=== PATIENT | male | born 1955 | race Caucasian/White ===

== ENCOUNTER 2025-07-09 15:59 | Emergency (ER) | payer MEDICARE, SELFPAY ==
--- OUTSIDE RECORDS SUMMARY | 2025-06-13 14:00 | XMS_ITS | Encounter Summary ---
Author Organization [facility] Address [address] [place] [id number] Care Team Providers Care Telephone Clerk Telegraph Office Name Role Phone Rosales Ulrich MD Primary Care Provider Bryce Todd MD Unavailable Unavailabl e Prabha Solorzano RN Unavailable Logan Johnson MD Unavailable Josee Benitez Unavailable Provider, Generic External Data Unavailable Unavailable Bryce Eduardo MD Unavailable Samantha Martin Unavailable [phone] Yasmine Tatum FLORIST DESIGNER Unavailable Beulah Conner NP Unavailable [phone] Arben Wheeler MD Unavailable [phone] Hue Vuong NP Unavailable [phone] Bernabe Trivedi MD Unavailable Reason for Visit * Reason Comments Geriatric Follow Up Encounter Details Date Type Department Care Team (Late st Contact Info) Description 06/13/2025 3:00 PM EDT Office Visit [facility] & [address] [place] [address] Kirti Guzman NP [address] [place] [address] [place] [address] Obstructive sleep apnea (Primary Dx); Mild cognitive impairment; Hypertension, unspecified type Social History Tobacco Use Types Packs/Day Years Used Date Smoking Tobacco: Never Smokeless Tobacco: Former Snuff Tobacco Cessation:Counseling Given: Not Answered Alcohol Use Standard Drinks/Week Comments No 0 (1 standard drink = 0.6 oz pur e alcohol) PHQ-2 Answer Date Recorded PHQ-9 Auto Total 0 01/19/2025 Sex and Gender Information Value Date Recorded Sex Assigned at Male 05/11/2020 12:58 PM EDT Legal Sex Male 2:43 PM EST Gender Identity Male 05/11/2020 12:58 PM EDT Sexual Orientation Straight 05/11/2020 12 :58 PM EDT documented as of this encounter Last Filed Vital Signs Vital Sign Reading Time Taken Comments Blood Pressure 136/72 06/13/2025 2:54 PM EDT Pulse 73 06/13/2025 2:54 PM EDT Temperature 36.7 C (98 F) 06/13/2025 2:54 PM EDT Respiratory Rate - - Oxygen Saturation 98% 06/13/2025 2:54 PM EDT Inhaled Oxygen Concentration - - Weight 101.2 kg (223 lb) 06/13/2025 2:54 PM EDT Height - - Body Mass Index 31.1 04/20/2025 8:51 AM EDT documented in this encounter Functional Status * Are you blind or do you have difficulty seeing, even when wearing glasses? Answer Date of Assessment Author No 11/07/2015 11:50 PM EDT Brad Atkins RN * Do you have serious difficulty walking or climbing stairs? Answer Date of Assessment Author No 11/07/2015 11:50 PM EDT Brad Atkins RN * Do you have difficulty dressing or bathing? Answer Date of Assessment Author No 11/07/2015 11:50 PM EDT Brad Atkins RN * Because of a physical, mental, or emotional condition, do you have difficulty doing errands alone such as a visiting a doctor's office or shopping? Answer Date of Assessment Author No 11/07/2015 11:50 PM EDT Brad Atkins RN documented as of this encounter Mental Status * Because of a physical, mental, or emotional condition, do you have serious difficulty concentrating, remembering, or making decisions? 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 -social and mental stimulation. Highly recommend reading, hobbies, puzzles, current events, music, financials, sports and socializing with friends and family. -Mediterranean diet Return in a year Kirti Guzman WAREHOUSE EXAMINER documented in this encounter Progress Notes * Kirti Guzman NP - 06/13/2025 3:00 PM EDT Phil Magdaleno is here with his , Natalie for recheck. Pt has MCI and lives with his family in [facility]. 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 Phil has mild word finding difficulties and he has no insight about cognitive decline. Natalie is concerned about declining cognitionwith more dependence on her for making decisions. We reviewed medications. Citalopram has been helpful for mood, with less irritableness. Phil manages his own medication and does not use a pillbox. Counseled about MCI and potential benefits of physical exercise, new learning, and stimulating activities. Phil has sleep apnea and uses CPAP, but it comes off when he goes to the bathroom and he doesn't always put it back on. Phil has hearing loss, but does not like wearing his hearing aids. We discussed potential benefits of using hearing aids and consistent CPAP use for brain health. We discussed importance of Natalie providing oversight with medications and that use of a pillbozx could be helpful to ensure meds a re taken correctly. Phil was seen today for geriatric follow up. Diagnoses and all orders for this visit: Obstructive sleep apnea Mild cognitive impairment - citalopram (CeleXA) 20 mg tablet; Take 1 Tablet (20 mg) by mouth daily. 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 -social and mental stimulation. Highly recommend reading, hobbies, puzzles, current events, music, financials, sports and socializing with friends and family. -Mediterranean diet Return in a year Kirti Guzman WAREHOUSE EXAMINER Time A total of 50 minutes was spent on today's patient encounter. Time spent includes some or all of the following, both ghjp-fd-vthh time and non mvpl-fs-metp time,but is not limited to: [x] Preparing to see the patient and reviewing records [] Discussion or coordination of care with other health personal care assistant [] Reviewing records or discussing history of plan with colleagues [x] Obtaining and/or reviewing the history [] Individual interpretation of results not billed by me [] Performing a medically appropriate examination [x] Counseling patient and/or caregiver [] Ordering of unique Tests, Medications, Referrals, or Procedures [x] Documentation within the EHR Est 40-54 min LOS [id number] documented in this encounter Plan of Treatment Upcoming Encounters Date Type Department Care Team (Late st Contact Info) Description 07/20/2025 1:00 PM EST Appointment [facility] Physicians - Heart & Vascular, [address] [place] [phone] [place] [address] [place] [address] Office [address] [place] [phone] 10/19/2025 9:10 AM EST Appointment [facility] Physicians - Primary Care, [facility] [address] [place] [address] Office [address] [place] [address] Rosales Ulrich MD [address] [place] [address] [address] [place] [address] 11/28/2025 9:20 AM EDT Appointment [facility] Physicians - Sleep Medicine, [address] [place] [phone] Hue Vuong NP [address] [place] [address] [address] [place] [address] 06/14/2026 11:00 AM EDT Appointment [facility] & [address] [place] [phone] Kirti Guzman NP [address] [place], [place] [id number] documented as of this encounter Visit Diagnoses Diagnosis Obstructive sleep apnea- Primary Obstructive sleep apnea (adult) (pediatric) Mild cognitive impairment Mild cognitive impairment, so stated Hypertension, unspecified type documented in this encounter Additional Health Concerns Assessment Noted Time PHQ-9 Depression Total Score: 1 02/05/20 23 4:17 PM EDT documented as of this encounter Care Teams Telephone Clerk Telegraph Office Relationship Specialty Start Date End Date Rosales Ulrich MD PCP - General 04/26/09 Bryce Todd MD Neurosurgery 10/04/20 Prabha Solorzano, RN [address] [place] [address] Registered Nurse 12/03/20 Logan Johnson MD [address] [place] [address] Orthopedic Surgery 01/03/21 Josee Benitez PA [address] [place], [place] [address] Physician Press Tender [employer]endiary Grenade Orthopedic Surgery 01/04/21 Provider, Generic External Data 02/02/21 Bryce Eduardo MD [address] [place] [address] Orthopedics 03/02/21 Samantha Martin PA [address] [place] [address] Physician Press Tender [employer] Orthopedic Surgery 04/02/21 Yasmine Tatum NP [address] [place] [address] Nurse Practitioner Nurse Practitioner 12/17/21 Beulah Conner NP [address] [place] [address] Nurse Practitioner Nurse Practitioner, Family 05/03/22 Arben Wheeler MD [address] [place], [place] [address] Internal Medicine, Sleep Medicine 11/15/22 Hue Vuong NP [address] [place] [address] Nurse Practitioner Nurse Practitioner, Acute Care 12/16/22 Bernabe Trivedi MD [address] [place] [address] Otolaryngology 01/08/23 documented as of this encounter
[2025-07-09 16:08] VITALS: BP 155/80; PULSE 68; RESP 14; TEMP 36.8; O2SAT 100; BMI 30.7
--- NOTE | 2025-07-09 16:11 | XR_ITS ---
PROCEDURE INFORMATION: Exam: XR Left Tibia and Fibula Exam date and time: 07/09/2025 4:18 PM Age: 70 years old Clinical indication: Injury or trauma; Fall; Blunt trauma; Lower leg; Left; Additional info: Fall, leg/knee pain TECHNIQUE: Imaging protocol: Radiologic exam of the left tibia and fibula. Views: 2 views. COMPARISON: CR XR KNEE LT 3V 07/09/2025 4:18 PM FINDINGS: Bones/joints: There is no evidence of acute fracture.There is no evidence of malalignment or dislocation. Soft tissues: Normal. IMPRESSION: There is no evidence of acute fracture.There is no evidence of malalignment or dislocation. .
--- NOTE | 2025-07-09 16:11 | XR_ITS ---
PROCEDURE INFORMATION: Exam: XR Left Femur Exam date and time: 07/09/2025 4:18 PM Age: 70 years old Clinical indication: Pain; Thigh; Left; Additional info: Fall, leg/knee pain TECHNIQUE: Imaging protocol: Radiologic exam of the left femur. Views: 2 views. COMPARISON: CR XR KNEE LT 3V 07/09/2025 4:18 PM FINDINGS: Bones/joints: No femoral shaft fracture.. No definite fracture of the hip. Moderate degenerative changes in the hip Soft tissues: Unremarkable. IMPRESSION: No femoral shaft fracture.. No definite fracture of the hip.
--- NOTE | 2025-07-09 16:11 | XR_ITS ---
PROCEDURE INFORMATION: Exam: XR Left Knee Exam date and time: 07/09/2025 4:18 PM Age: 70 years old Clinical indication: Injury or trauma; Fall; Blunt trauma; Knee; Left; Additional info: Fall, knee pain TECHNIQUE: Imaging protocol: Radiologic exam of the left knee. Views: 3 views. COMPARISON: CR XR FEMUR LT 2V 07/09/2025 4:18 PM FINDINGS: Bones/joints: Lucency in the superior lateral aspect of the patella. Differential includes bipartite patella versus fracture. Moderate Tricompartmental joint space narrowing and osteophyte formation consistent with degenerative changes. Soft tissues: Normal. IMPRESSION: 1. Lucency in the superior lateral aspect of the patella. Differential includes bipartite patella versus fracture. 2. Moderate Tricompartmental joint space narrowing and osteophyte formation consistent with degenerative changes.
--- NOTE | 2025-07-09 16:14 | ED_ITS ---
Discharge Plan Disposition Patient Disposition: Home, Self-Care Condition: Good Referrals Follow up/Referrals: Provider,Referral, MD [Primary Care Provider, Medical] - See instructions Activity Restrictions/Add. Instructions Additional Instructions/Restrictions: Please take tylenol and motrin for pain at home. you may weight bear as tolerated. Please call your bone doctor so that they can follow up with you in clinic and explore options for more advanced imaging such as MRI to ensure you haven't torn ligaments or soft tissue in your knee. You may rotate with ice and heat at home. Clinical Impressions Clinical Impression: Acute pain of left knee Fall Qualifiers: Encounter type: initial encounter Qualified Code(s): W19.XXXA - Unspecified fall, initial encounter Print Language Print Language: Romanian Discharge ED Provider: Alfredo Thornton Adult HPI General Chief complaint: Extremity Injury, Lower Stated complaint: AO 07-09 fell and hurt left knee Time Seen by Provider: 07/09/25 16:02 Mode of Arrival: Wheelchair Source of Information: Patient Description of Symptoms (Recalled from ER Triage Doc. by RN): patient states about 30 mins ago he was trying to go down a hill while deer hunting and he slipped and his left leg went all the way nehomd him, he has left knee pain. 05/27 History of Present Illness HPI narrative: This is a 70-year-old male patient, with past medical history of hypertension and prophylactic aspirin use, who is presenting to the emergency department today for evaluation of left knee pain. Patient states that he was hunting this afternoon and he was walking down a hill when he slipped and his knee hyperflexed underneath him and the entirety of his body weight came down onto the knee. He did not hit his head and did not lose consciousness. He has been unable to walk since that time and had to be full assisted into the car by his family. He also required a wheelchair to get to the emergency department. He has had no pain in the hips, no pain in the back, no numbness and tingling in the extremities, and no weakness distally in the extremity. Related Data Allergies Allergy/AdvReac Type Severity Reaction Status Date / Time No Known Allergies Allergy Verified 07/09/25 16:24 [facility] Disclaimer: The information contained in this section may have been updated after the patient was seen, as this information can be updated by other users. Social History Smoking Status: Never smoker alcohol intake: never current occupational status: previously employed Travel in the last 8 weeks?: None ROS Obtained: Yes Systems reviewed as appropriate & no additional complaints except as documented Physical Exam General General appearance: other (See MDM) Respiratory Respiratory exam: Present other (See MDM) Cardiovascular Cardiovascular exam: Present other (See MDM) Neurological Exam Neurological exam: Present other (See MDM) Medical Decision Making Medical Records Medical records reviewed: Yes I reviewed the patient's medical records. Screening: Per USPSTF and CDC recommendations, given the prevalence of disease in our region, it is our hospital?s policy to screen for HIV and viral Hepatitis for all patients aged 18 and over and those with ongoing risk factors. Antonio Inquiry Pt receiving controlled substance: No Antonio was queried for this patient: No Vital Signs: 07/09/25 16:08 07/09/25 16:26 07/09/25 16:30 Temperature 98.2 F Temperature Source Oral Pulse Rate 76 79 Pulse Rate [Right Radial] 68 Respiratory Rate 14 Blood Pressure 155/80 H Blood Pressure [Right Arm] 155/80 H Blood Pressure Mean [Right Arm] 105 Blood Pressure Source [Right Arm] Automatic Cuff Blood Pressure Position [Right Arm] Supine 02 Sat by Pulse Oximetry 100 94 L 95 Oxygen Delivery Method Room Air Room Air Orders (Tests/Meds): ED MEDICATIONS Discontinued Medications Generic Name Dose Route Start Last Admin Trade Name Anahy PRN Reason Stop Dose Admin Acetaminophen 1,000 mg 07/09/25 16:12 07/09/25 16:24 Acetaminophen 500mg Tab PO 07/09/25 16:13 1,000 mg ONCE ONE Administration Ibuprofen 800 mg 07/09/25 16:12 07/09/25 16:27 Ibuprofen 400 Mg Tablet PO 07/09/25 16:13 Not Given ONCE ONE Ibuprofen 0 mg 07/09/25 16:29 07/09/25 16:31 Ibuprofen 800 Mg Tablet PO 07/09/25 16:30 Not Given ONCE ONE Ibuprofen 800 mg 07/09/25 16:32 07/09/25 16:33 Ibuprofen 800 Mg Tablet PO 07/09/25 16:33 800 mg ONCE ONE Administration Methocarbamol 500 mg 07/09/25 16:12 07/09/25 16:24 Methocarbamol 500mg Tablet PO 07/09/25 16:13 500 mg BID ONE Administration ORDERS Category Date Time Status Femur XR left 2 views [XR femur LT 2V] Stat Exams 07/09/25 16:11 Completed Fibula/tibia XR left 2 views [XR tibia fibula LT 2V] Exams 07/09/25 16:11 Completed Stat Knee XR left 3 views [XR knee LT 3V] Stat Exams 07/09/25 16:11 Completed HIV Combo Stat Lab 07/09/25 16:35 Ordered Hepatitis C Ab Qual. W/ RFX Stat Lab 07/09/25 16:35 Ordered Medical Decision Narrative: In summary, this is a 70-year-old male patient who is presented to the Emergency Department today for evaluation of left knee pain after falling and having his knee hyperflexed underneath his body and having the entirety of his body weight come down onto his left knee. The past medical history and comorbidities include hypertension as well as prophylactic aspirin use On initial evaluation of the patient they were resting comfortably in no acute distress and nontoxic in appearance. They are hemodynamically stable, saturating well room air, and are neurologically intact. Primary survey the patient has an intact airway with bilateral breath sounds plus radial pulse. He has no scalp lacerations, hematomas, or abrasions. No midface instability or trauma occlusion. No intraoral lacerations or lesions. He has no tenderness of the C, T, or L-spine. No deformities of the upper extremities. Chest and abdomen are nontender to palpation. Pelvis is stable. He has no tenderness of the proximal femur, he has significant tenderness of the distal femur at the level of the left knee as well as the proximal tibia at the level of the knee. He has full range of motion and motor strength about the left ankle. Femur fracture, tibial plateau fracture, fibular fracture, soft tissue injury, ligamentous injury, meniscus injury, among others Work was initiated with x-rays of the femur, knee, and tib-fib on the left. We have also administered ibuprofen, Tylenol, and Robaxin to the patient for pain. X-rays were personally turbid by me and demonstrate no evidence of distal femur proximal tibial fracture. Official radiology read notes that there is evidence of a bipartite patella versus potential patellar fracture. I have reexamined the patient's knee and he does not have any tenderness over the patella itself so I do not feel that this patellar fracture I feel that this is more likely a bipartite patella. Patient states that he has established care with an orthopedist through [facility]. I have asked him to obtain follow-up with them as he likely has a soft tissue injury within the knee. While in the emergency department he was able to ambulate without difficulty. His pain has been better controlled with Robaxin, ibuprofen, Tylenol. I am instructed him to continue taking anti-inflammatories at home for this pain. At this time all questions been answered and all parties are agreeable with the decision to discharge Critical Care Critical Care Time Critical Care Time: No
[2025-07-09] MEDS: METHOCARBAMOL 500MG TABLET 500 MG PO (16:24)
[2025-07-09] MEDS: ACETAMINOPHEN 500MG TAB 1000 MG PO (16:24)
[2025-07-09 16:26] VITALS: BP 155/80; PULSE 76; O2SAT 94
[2025-07-09 16:30] VITALS: PULSE 79; O2SAT 95
[2025-07-09] MEDS: IBUPROFEN 800 MG TABLET PO (16:33)
--- OUTSIDE RECORDS SUMMARY | 2025-07-09 16:56 | XMS_ITS | Encounter Summary ---
Author Organization [facility] Address [facility] [place] [address] Care Team Providers Care Driver Lifter Of Sanitation Truck Name Role Phone Rosales Ulrich MD Primary Care Provider [phone] Bryce Todd MD Unavailable Unavailabl e Prabha Solorzano RN Unavailable Logan Johnson MD Unavailable Josee Benitez Unavailable Provider, Generic External Data Unavailable Unavailable Bryce Eduardo MD Unavailable Samantha Martin Unavailable [phone] Yasmine Tatum LOCKSMITH Unavailable Beulah Conner NP Unavailable [phone] Arben Wheeler MD Unavailable [phone] Hue Vuong NP Unavailable [phone] Bernabe Trivedi MD Unavailable Reason for Visit * Reason Comments Medications Refill Encounter Details Date Type Department Care Team (Late st Contact Info) Description 06/14/2025 Refill [facility] Physicians - Heart & Vascular, [address] Medical Office [address] [place] [address] Kate Singh DO [address] [facility] [address] [place] [phone] Medications Refill Social History Tobacco Use Types Packs/Day Years Used Date Smoking Tobacco: Never Smokeless Tobacco: Former Snuff Alcohol Use Standard Drinks/Week Comments No 0 [...] PM EDT documented as of this encounter Functional Status * Are you [...] Brad Atkins RN documented in this encounter Plan of Treatment Upcoming Encounters Date Type Department Care Team (Late st Contact Info) Description 07/20/2025 1:00 PM EST Appointment [facility] Physicians - Heart & Vascular, [place] [address] [place] [address] Building [address] [place] [phone] Kate Singh DO [address] [facility] Building [address] [place] [phone] 10/19/2025 9:10 AM EST Appointment [facility] Physicians - Primary Care, [place] [address] [place] [phone] Rosales Ulrich MD [address] [place] [address] [address] [place] [address] 11/28/2025 9:20 AM EDT Appointment [facility] Physicians - Sleep Medicine, [address] [place] [phone] [place] [address] [place] [address] [address] [place], [place] [address] 06/14/2026 11:00 AM EDT Appointment [facility] & [place] [address] [facility] [address] [place] [address] Kirti Guzman NP [address] [place] [address] [place] [address] documented as of this encounter Visit Diagnoses Diagnosis Gout, unspecified cause, unspecified chronicity, unspecified site documented in this encounter Additional Health Concerns Assessment Noted Time PHQ-9 Depression Total Score: 1 02/05/20 23 4:17 PM EDT documented as of this encounter Care Teams Driver Lifter Of Sanitation Truck Relationship Specialty Start Date End Date Rosales Ulrich MD PCP - General 04/26/09 Bryce Todd MD Neurosurgery 10/04/20 Prabha Solorzano, [address] [place] [address] Registered Nurse 12/03/20 Logan Johnosn MD [address] [place] [address] Orthopedic Surgery 01/03/21 Josee Benitez PA [address] [place] [address] Physician Boiler Shop Mechanic Orthopedic Surgery 01/04/21 Provider, Generic External Data 02/02/21 Bryce Eduardo MD [address] [place], [place] [id number] Orthopedics 03/02/21 Samantha Martin PA [address] [place], [place] [address] Physician Boiler Shop Mechanic Orthopedic Surgery 04/02/21 Yasmine Tatum NP [address] [place] [address] Nurse Practitioner Nurse Practitioner 12/17/21 Beulah Conner NP [address] [place] [address] Nurse Practitioner Nurse Practitioner, Family 05/03/22 Arben Wheeler MD [address] [place] [address] Internal Medicine, Sleep Medicine 11/15/22 Hue Vuong NP [address] [place] [address] Nurse Practitioner Nurse Practitioner, Acute Care 12/16/22 Bernabe Trivedi MD [address] [facility] [place] [address] Otolaryngology 01/08/23 documented as of this encounter
--- OUTSIDE RECORDS SUMMARY | 2025-07-09 16:56 | XMS_ITS | Encounter Summary ---
Author Organization [facility] Address [address], [address] [place] [address] Care Team Providers Care Comber Operator Name Role Phone Rosales Ulrich MD Primary Care Provider + Encounter Details Date Type Department Care Team (Late st Contact Info) Description 09/16/2017 PAT Telephone [facility] PAT [address] [place] [address] Des Trivedi, RN Social History Tobacco Use Types Packs/Day Years Used Date Smoking Tobacco: Never Smokeless Tobacco: Former Comments:years ago-on and of f Alcohol Use Standard Drinks/Week Comments No 0 (1 standard drink = 0.6 oz pur e alcohol) Sex and Gender Information Value Date Recorded Sex Assigned at Not on file Legal Sex Male 11:23 PM EST Gender Identity Not on file Sexual Orientation Not on file documented as of this encounter Last Filed Vital Signs Vital Sign Reading Time Taken Comments Blood Pressure - - Pulse - - Temperature - - Respiratory Rate - - Oxygen Saturation - - Inhaled Oxygen Concentration - - Weight 102.1 kg (225 lb) 09/16/2017 3:36 PM EST Height 182.9 cm (6') 09/16/2017 3:36 PM EST Body Mass Index 30.52 09/16/2017 3:36 PM EST documented in this encounter Progress Notes * Nataly Trivedi - 09/16/2017 3:39 PM EST Obstructive Sleep Apnea (KASSANDRA) Screening Patient: Bryce Magdaleno Date of : 1955 Date: 09/16/2017 1. Are you a loud and/or regular snorer? [] Yes [x] No 2. Have you been observed to gasp or stop breathing during sleep? [] Yes [x] No 3. Do you feel tired or groggy upon awakening or do you awaken with a headache? [] Yes [x] No 4. Are you often tired or fatigued during the wake time hours? [] Yes [x] No 5. Do you fall asleep sitting, reading, watching TV or driving? [] Yes [x] No 6. Do you often have problems with memory or concentration? [] Yes [x] No If patient's score is >=3 they are considered high risk for KASSANDRA. Notify the anesthesiologist of the high risk and document in focus note. Note: If the patient's BMI is more than 35 kg m , has neck circumference > 40 cm, and/or high blood pressure the risk is greater (?? [place] [employer], 2006). documented in this encounter Plan of Treatment Not on file documented as of this encounter Visit Diagnoses Not on filedocumented in this encounter Care Teams Comber Operator Relationship Specialty Start Date End Date Rosales Ulrich MD [address] [facility] [address] [place] [address] PCP - General 08/01/15 documented as of this encounter
--- OUTSIDE RECORDS SUMMARY | 2025-07-09 16:56 | XMS_ITS | Encounter Summary ---
Author Organization [facility] Address [facility] [address] [place] [address] Care Team Providers Care Garment Examiner Name Role Phone Rosales Ulrich MD Primary Care Provider Bryce Todd MD Unavailable Unavailabl e Prabha Solorzano RN Unavailable Logan Johnson MD Unavailable Josee Benitez Unavailable Provider, Generic External Data Unavailable Unavailable Bryce Eduardo MD Unavailable Samantha Martin Unavailable [phone] Yasmine Tatum PLASMA CUTTING MACHINE OPERATOR Unavailable Beulah Conner NP Unavailable [phone] Arben Wheeler MD Unavailable [phone] Hue Vuong NP Unavailable [phone] Bernabe Trivedi MD Unavailable Reason for Visit * Reason Comments Medications Refill Encounter Details Date Type Department Care Team (Late st Contact Info) Description 05/11/2025 Refill [facility] Physicians - Heart & Vascular, [address] Office [address] [place] [address] Darin Dick MD Medications Refill Social History Tobacco Use Types [...] Description 07/20/2025 1:00 PM EST Appointment [facility] Physicians - Heart & Vascular, [place] [address] [place] [address] Medical Office Building [address] [place] [phone] Kate Singh DO [address] [place] [address] Medical Office Building [address] [place] [phone] 10/19/2025 9:10 AM EST Appointment [facility] Physicians - Primary Care, [address] Medical Office Building [address] [place] [phone] Rosales Ulrich MD [address] [facility] [address] [place] [address] 11/28/2025 9:20 AM EDT Appointment [facility] Physicians - Sleep Medicine, [address] Medical Office Building [address] [place] [phone] Hue Vuong NP [address] [facility] [address] [place], [place] [phone] 06/14/2026 11:00 AM EDT Appointment [facility] & [address] [place] [phone] Kirti Guzman NP [address] [place] [address] [place] [address] documented as of this encounter Visit Diagnoses Diagnosis Coronary artery disease, unspecified vessel or lesion type, unspecified whether angina present, unspecified whether kaibab or transplanted heart Abnormal electrocardiogram (ECG) (EKG) Gout, unspecified cause, unspecified chronicity, unspecified site documented in this encounter Additional Health Concerns Assessment Noted Time PHQ-9 Depression Total Score: 1 02/05/20 23 4:17 PM EDT documented as of this encounter Care Teams Garment Examiner Relationship Specialty Start Date End Date Rosales Ulrich MD PCP - General 04/26/09 Bryce Todd MD Neurosurgery 10/04/20 Prabha Solorzano, RN [address] [place], [place] [address] Registered Nurse 12/03/20 Logan Johnson MD [address] [place] [address] Orthopedic Surgery 01/03/21 Josee Benitez PA [address] [place] [address] Physician Fiberglass Finisher Orthopedic Surgery 01/04/21 Provider, Generic External Data 02/02/21 Bryce Eduardo MD [address] [place], [place] [id number] Orthopedics 03/02/21 Samantha Martin PA [address] [place], [place] [id number] Physician Fiberglass Finisher Orthopedic Surgery 04/02/21 Yasmine Tatum NP [address] [place] [address] Nurse Practitioner Nurse Practitioner 12/17/21 Beulah Conner NP [address] [place] [address] Nurse Practitioner Nurse Practitioner, Family 05/03/22 Arben Wheeler MD [address] [place] [address] Internal Medicine, Sleep Medicine 11/15/22 Hue Vuong NP [address] [place] [address] Nurse Practitioner Nurse Practitioner, Acute Care 12/16/22 Bernabe Trivedi MD [address] [place] [address] Otolaryngology 01/08/23 documented as of this encounter
--- OUTSIDE RECORDS SUMMARY | 2025-07-09 16:56 | XMS_ITS | Encounter Summary ---
Author Organization [facility] Address [address] [place] [address] Care Team Providers Care Supervisor Research Kennel Name Role Phone Rosales Ulrich MD Primary Care Provider Bryce Todd MD Unavailable Unavailabl e Prabha Solorzano RN Unavailable Logan Johnson MD Unavailable [phone] Josee Benitez Unavailable Provider, Generic External Data Unavailable Unavailable Bryce Eduardo MD Unavailable Samantha Mratin Unavailable Yasmine Tatum NP Unavailable Beulah Conner NP Unavailable Arben Wheeler MD Unavailable [phone] Hue Vuong NP Unavailable [phone] Bernabe Trivedi MD Unavailable Reason for Visit * Reason Comments Medications Refill Encounter Details Date Type Department Care Team (Late st Contact Info) Description 07/12/2022 Refill [facility] Physicians - Primary Care, [facility] [address] [facility] Medical Office [address] [place] [address] Karly Angel, TENSIONING MACHINE OPERATOR [address] [place] [address] Medications Refill Social History Tobacco Use Types Packs/Day Years Used Date Smoking Tobacco: Never Smokeless Tobacco: Never Quit: 2016 Alcohol Use Standard Drinks/Week Comments No 0 (1 standard drink = 0.6 oz pur e alcohol) PHQ-2 Answer Date Recorded PHQ-9 Auto Total 0 12/17/2021 Sex and Gender Information Value Date Recorded [...] Description 07/20/2025 1:00 PM EST Appointment [facility] Physicians - Heart & Vascular, [place] [address] [place] [address] Office [address] [place] [phone] Kate Singh DO [address] [facility] Office [address] [place] [phone] 10/19/2025 9:10 AM EST Appointment [facility] Physicians - Primary Care, [address] Medical Office [address] [place] [phone] Rosales Ulrich MD [address] [facility] [address] [place] [address] 11/28/2025 9:20 AM EDT Appointment [facility] Physicians - Sleep Medicine, [address] Office [address] [place] [phone] Hue Vuong NP [address] [facility] [address] [place] [address] 06/14/2026 11:00 AM EDT Appointment [facility] [address] [facility] [address] [place] [address] Kirti Guzman NP [address] [place] [address] [place] [address] documented as of this encounter Visit Diagnoses Not on filedocumented in this encounter Additional Health Concerns Assessment Noted Time PHQ-9 Depression Total Score: 1 12/18/19 22 1:27 PM EDT documented as of this encounter Care Teams Supervisor Research Kennel Relationship Specialty Start Date End Date Rosales Ulrich MD PCP - General 04/26/09 Bryce Todd MD Neurosurgery 10/04/20 Prabha Solorzano, [address] [place] [address] Registered Nurse 12/03/20 Logan Johnson MD [address] [place] [address] Orthopedic Surgery 01/03/21 Josee Benitez PA [address] [place] [address] Physician Computer Systems Support Specialist Orthopedic Surgery 01/04/21 Provider, Generic External Data 02/02/21 Bryce Eduardo MD [address] [place], [place] [phone] Orthopedics 03/02/21 Samantha Martin PA [address] [place], [place] [phone] Physician Computer Systems Support Specialist Orthopedic Surgery 04/02/21 Yasmine Tatum NP [address] [place] [address] Nurse Practitioner Nurse Practitioner 12/17/21 Beulah Conner NP [address] [place] [address] Nurse Practitioner Nurse Practitioner, Family 05/03/22 Arben Wheeler MD [address] [place] [address] Internal Medicine, Sleep Medicine 11/15/22 Hue Vuong NP [address] [place] [address] Nurse Practitioner Nurse Practitioner, Acute Care 12/16/22 Bernabe Trievdi MD [address] [facility] [place] [address] Otolaryngology 01/08/23 documented as of this encounter
--- OUTSIDE RECORDS SUMMARY | 2025-07-09 16:56 | XMS_ITS | Clinical Summary ---
Author Organization [facility] Address [address] [place] [id number] Care Team Providers Care Take Away Attendant Name Role Phone Rosales Ulrich MD Primary Care Provider Amara Todd MD Unavailable Unavailabl e Prabha Solorzano RN Unavailable Logan Johnson MD Unavailable Josee Benitez Unavailable Provider, Generic External Data Unavailable Unavailable Amara Eduardo MD Unavailable Samantha Martin Unavailable Yasmine Tatum ONCOLOGY SOCIAL WORKER Unavailable Beulah Conner NP Unavailable [phone] Arben Wheeler MD Unavailable [phone] Hue Vuong NP Unavailable [phone] Bernabe Trivedi MD Unavailable Allergies Active Allergy Reactions Criticality Noted Date Comments Adhesive Tape-Silicones Rash 01/15/2024 Medications atorvastatin (LIPITOR) 80 mg TabletIndications:Co ronary artery disease, unspecified vessel or lesion type, unspecified whether angina present, unspecified whether unga or transplanted heart Take 1 Tablet by mouth nightly at bedtime. 90 Tablet 06/09/2 025 Active aspirin 81 mg Tablet, Delayed Release (E.C.) Take 81 mg by mouth daily. Active colchicine 0.6 mg tabletIndications:Go ut, unspecified cause, unspecified chronicity, unspecified site TAKE 1/2 TABLET BY MOUTH EVERY DAY IN THE MORNING 15 Tablet Active amLODIPine (NORVASC) 10 mg tablet TAKE 1 TABLET BY MOUTH EVERY DAY 90 Tablet Active Cholecalciferol, Vitamin D3, 50 mcg (2,000 unit) Capsule Take 1 Capsule (50 mcg) by mouth daily. Active citalopram (CeleXA) 20 mg tabletIndications:Mi ld cognitive impairment Take 1 Tablet (20 mg) by mouth daily. 90 Tablet 3 Active metoprolol succinate (TOPROL) 25 mg XL tabletIndications:Co ronary artery disease, unspecified vessel or lesion type, unspecified whether angina present, unspecified whether unga or transplanted heart,Abnormal electrocardiogram (ECG) (EKG) TAKE 1 TABLET BY MOUTH EVERY DAY IN THE MORNING 30 Tablet Active ergocalciferol (ERGOCALCIFEROL) 1,250 mcg (50,000 unit) CapsuleIndications:M ild cognitive impairment,Obstructi ve sleep apnea,Vitamin D deficiency Take 1 Capsule (50,000 Units) by mouth once weekly. 12 Capsule 1 024 2024 Discontinued(A lternative Therapy) amLODIPine (NORVASC) 10 mg tablet TAKE 1 TABLET BY MOUTH EVERY DAY 90 Tablet 025 2024 Discontinued trimethoprim-polymyx in b (POLYTRIM) 10,000 unit- 1 mg/mL Drops INSTILL 1 DROP INTO THE RIGHT EYE EVERY 3 HOURS WHILE AWAKE FOR 10 DAYS MAX 6 DROPS IN 24 HOURS 025 2024 Discontinued(T herapy Completed) metoprolol succinate (TOPROL) 25 mg XL tabletIndications:Co ronary artery disease, unspecified vessel or lesion type, unspecified whether angina present, unspecified whether unga or transplanted heart,Abnormal electrocardiogram (ECG) (EKG) TAKE 1 TABLET BY MOUTH EVERY DAY IN THE MORNING 30 Tablet 025 11/03/ 2025 Discontinued citalopram (CeleXA) 20 mg tabletIndications:Mi ld cognitive impairment Take half tablet daily for 2 weeks then increase dose to whole tablet daily 30 Tablet 1 025 2024 Discontinued(R eorder) Active Problems Problem Noted Date Diagnosed Date Abnormal electrocardiogram (ECG) (EKG) 5 Dyspnea, unspecified type 12/14/2024 Vitamin D deficiency 12/04/2023 Assessment & Plan (05/15/2025 10:32 AM EDT): Orders: LIPID PROFILE; Future LIVER PROFILE; Future RENAL PROFILE; Future CBC WITH DIFFERENTIAL; Future URINALYSIS WITH REFLEX TO CULTURE; Future REFLEX TUBE FOR URINE CULTURE IF NEEDED; Future TSH (THYROID STIMULATING HORMONE); Future TESTOSTERONE, TOTAL; Future PSA (PROSTATE SPECIFIC AG); Future VITAMIN D 25 HYDROXY TOTAL; Future Mild cognitive impairment 11/26/2023 Obstructive sleep apnea 01/09/2023 Overview (01/09/2023): Added automatically from request for surgery [id number] Left ankle swelling 05/03/2022 Primary osteoarthritis of right knee 03/08/2021 Overview (03/08/2021): Added automatically from request for surgery [id number] Cervical spondylosis without myelopathy 06/19/20 20 DDD (degenerative disc disease), cervical 2019 Overview (05/30/2020): Added automatically from request for surgery [id number] Cervical radiculopathy 05/30/2020 Overview (05/30/2020): Added automatically from request for surgery [id number] Cervical disc disorder with radiculopathy of mid-cervical region 05/11/2020 Vertigo 11/06/2017 Ureterolithiasis 01/13/2013 Pure hypercholesterolemia 10/21/2011 CAD (coronary artery disease) 10/21/2011 Colon polyps HTN (hypertension) Benign prostatic hyperplasia Overview (05/19/2017): Replaced inactive diagnosis via diagnosis import Assessment & Plan (05/15/2025 10:32 AM EDT): Orders: LIPID PROFILE; Future LIVER PROFILE; Future RENAL PROFILE; Future CBC WITH DIFFERENTIAL; Future URINALYSIS WITH REFLEX TO CULTURE; Future REFLEX TUBE FOR URINE CULTURE IF NEEDED; Future TSH (THYROID STIMULATING HORMONE); Future TESTOSTERONE, TOTAL; Future PSA (PROSTATE SPECIFIC AG); Future VITAMIN D 25 HYDROXY TOTAL; Future Resolved Problems Problem Noted Date Diagnosed Date Resolved Date BPH (benign prostatic hyperplasia) 01/14/2013 05/17/2013 Essential hypertension, benign 10/21/2011 11/09/2012 Pure hypercholesterolemia Encounters Date Type Department Care Team Description 06/20/2025 Refill [facility] Heart & Vascular, [address] Medical Office [address] [place] [phone] Kate Singh, DO Medications Refill 06/14/2025 Refill The [address] Medical Office Building [address] [place] [phone] Kate Singh, Medications Refill 06/13/2025 3:00 PM EDT Office Visit The [address] [place] [address] Kirti Guzman NP Obstructive sleep apnea (Primary Dx); Mild cognitive impairment; Hypertension, unspecified type 06/09/2025 Refill [facility] Primary Care, [address] Medical Office [address] [place] [phone] Rosales Ulrich MD Medications Refill 05/12/2025 Telephone The [place] [address] [facility] [address] [place] [address] Romulo, HAN Huerta Questions About Medications 05/11/2025 Refill The [place] [address] [facility] [address] [place] [phone] Kirti Guzman NP Medications Refill 05/11/2025 Refill The [facility], [address] Medical Office [address] [place] [phone] Darin Dick MD Medications Refill 04/20/2025 9:10 AM EDT Office Visit The [facility] - Primary Care, [place] [address] [facility] Medical Office Building [address] [place] [phone] Rosales Ulrich MD Medicare annual wellness visit, subsequent (Primary Dx); High cholesterol; Benign prostatic hyperplasia without lower urinary tract symptoms; Vitamin D deficiency; Immunization due 04/20/2025 9:06 AM EDT - 04/20/2025 11:59 PM EDT Hospital Encounter Laboratory [address] [facility] [address] [place] [address] High cholesterol; Benign prostatic hyperplasia without lower urinary tract symptoms; Vitamin D deficiency Discharge Disposition: Home or Self Care from Last 3 Months Immunizations Immunization Administration Dates Next Due Flu Enhanced Dose =>65 or Tr ansplant Pat 04/20/2025,05/23/2022 Influenza 05/23/2022, 0,07/22/2019,020 08/2017,05/20/2016 Influenza (whole) 05/17/2013,05/11/2012,04/29/20 11 Influenza, Seasonal, Injecta ble, Preservative Free 05/23/2015 Pneumococcal Conjugate 13 va lent (PREVNAR) 12/17/2018 Pneumococcal Polysaccharide 23 Valent (PNEUMOVAX) 09/15/2019 Tdap 08/01/2022,10/29/2010 10/29/2020 Zoster-LZV(Zostavax) 05/17/2013 Family History Medical History Relation Name Comments Dementia Maternal Aunt Arthritis Mother [place] Dementia Mother [place] High Blood Pressure Mother [place] Migraines Mother [place] Anesthesia Complications Neg Hx Heart Problems Neg Hx Relation Name Status Comments Father Maternal Aunt Other Mother [place] Alive Social History Tobacco Use Types Packs/Day Years [...] Orientation Straight 05/11/2020 12 :58 PM EDT Last Filed Vital Signs Vital Sign Reading Time Taken Comments Blood Pressure 136/72 06/13/2025 2:54 PM EDT Pulse 73 06/13/2025 2:54 PM EDT Temperature 36.7 C (98 F) 06/13/2025 2:54 PM EDT Respiratory Rate 17 01/21/2025 3:26 PM EDT Oxygen Saturation 98% 06/13/2025 2:54 PM EDT Inhaled Oxygen Concentration - - Weight 101.2 kg (223 lb) 06/13/2025 2:54 PM EDT Height 180.3 cm (5' 11 ) 04/20/2025 8:51 AM EDT Body Mass Index 31.1 04/20/2025 8:51 AM EDT Plan of Treatment Upcoming Encounters Date Type Department Care Team (Late st Contact Info) Description 07/20/2025 1:00 PM EST Appointment The [facility] - Heart & Vascular, [address] [place] [phone] Kate Singh DO [address] [place] [address] Office [address] [place] [phone] 10/19/2025 9:10 AM EST Appointment The [facility] Phys[facility] - Primary Care, [address] Medical Office [address] [place] [phone] Rosales Ulrich MD [address] [place] [address] [address] [place] [address] 11/28/2025 9:20 AM EDT Appointment The [facility] - Sleep Medicine, [address] Medical Office [address] [place] [phone] Hue Vuong NP [address] [place], [place] [phone] 06/14/2026 11:00 AM EDT Appointment The [facility] [address] [facility] [address] [place] [address] Kirti Guzman NP [address] [place] [address] Health Maintenance Due Date Last Done Comments Cologuard 1955 FIT 1955 Zoster-RZV(Shingrix) (1 of 2) 07/12/2013 COVID-19 Vaccine (2024-2 6 season) 2025 Fall Risk Assessment 04/20/2026 04/20/2025, 01/30/2022, 09/15/2019, Additional history exists Lipid Monitoring 04/20/2026 04/20/2025, , 03/17/2024, Additional history exists Annual Care Visit for Contra ct Coordination 04/21/2026 04/20/2025, 03/17/2024, 03/12/2023, Additional history exists RSV Vaccines (1 - 1-dose 75+ series) 2028 Colonoscopy 10/19/2031 10/18/2021, 09/19, 08/17/2015, Additional history exists Colorectal Cancer Screening 10/19/2031 Tetanus Vaccination (Every 1 0 Years) 08/01/2032 08/01/2022, 10/29/2010 Hepatitis C Virus (HCV) Screening Completed 014 Pneumococcal Vaccine: 50+ Years Completed , 12/17/2018 Depression Screening Completed 01/19/2025, 03/17/2024, 01/31/2023, Additional history exists BMI Counseling Completed 02/02/2025, 01/19/2025 (Reporting Purposes Only) Calendar Year Medicare Annual Wellness (AWV) Completed 04/20/2025, 03/17/2024, 03/12/2023, Additional history exists Advance Care Planning Completed 04/20/2025 , 01/19/2025, 03/17/2024, Additional history exists Influenza Vaccination (Yearly) Discontinued 0 04/20/2025, 05/23/2022, 05/23/2022, Additional history exists Influenza Vaccination Completed 04/20/2025 , 05/23/2022, 05/23/2022, Additional history exists Lipid Screening Discontinued 04/20/2025, 12/16, 03/17/2024, Additional history exists Medical Devices Implanted Type Area Rn Obgyn Device Identifier Shelf Expiration Date Model / Serial / Lot Kevin 2 Level Plte 34mm Ti - [id number] Implanted:Qty: 1 on 06/19/2020 by Amara Todd MD at [facility] [place] Plate Spine Cervical * J \T\ J DEPUY SPINE [id number] / / Putty Bg Fibergraft 2cc - [id number] Implanted:Qty: 1 on 06/19/2020 by Amara Todd MD at [facility] [place] Spine Cervical 08/24/2022 [id number] / / [id number] Acis Proti Meghna/M 9mm H - [id number] Implanted:Qty: 1 on 06/19/2020 by Amara Todd MD at [facility] [place] Spine Cervical * J \T\ J DEPUY SPINE 12/27/2022 [id number] / / [id number] Acis Proti Meghna/M 8mm H - [id number] Implanted:Qty: 1 on 06/19/2020 by Amara Todd MD at [facility] [place] Spine Cervical * J & J CONSUMER 02/02/2025 [id number] / / [id number] Scr Kevin Const S-T 14mm Ti - [id number] Implanted:Qty: 6 on 06/19/2020 by Amara Todd MD at [facility] [place] Spine Cervical * J \T\ J DEPUY SPINE [id number] / / Knee Adv Tech Emiliano Ve 161829 - [id number] Implanted:Qty: 1 on 04/05/2021 by Logan Johnson MD at [facility] [place] Right: Knee * SUMANTH [id number] / / Cement Refobacin Bc R 1x40 - [id number] Implanted:Qty: 1 on 04/05/2021 by Logan Johnson MD at [facility] Right: Knee * SUMANTH 05/17/2023 [id number] / / [id number] Persona Knee System Rt Sz G - [id number] Implanted:Qty: 1 on 04/05/2021 by Logan Johnson MD at [facility] Right: Knee * SUMANTH 10/17/2030 [id number] 2 / / [id number] Persona Femur Cemented Cruciate Retaining Right Size 9 - [id number] Implanted:Qty: 1 on 04/05/2021 by Logan Johnson MD at [facility] Right: Knee * SUMANTH 11/15/2030 [id number] 2 / [id number] Persona Vivacit-E Hcp All Poly Pateela 35mm 9.0mm Thick - [id number] Implanted:Qty: 1 on 04/05/2021 by Logan Johnson MD at [facility] Right: Knee * SUMNATH 01/22/2026 [id number] / / [id number] Persona Vivacit-E Highly Crosslinked Polyethylene Articular Surface Medial Congruent (Mc) Right 12mm Height - [id number] Implanted:Qty: 1 on 04/05/2021 by Logan Johnson MD at [facility] Right: Knee * SUMANTH 10/28/2025 [id number] 2 / [id number] Procedures Procedure Name Priority Date/Time Associated Diagnosis Comments DIFFERENTIAL Routine 04/20/2025 9:06 AM EDT VITAMIN D 25 HYDROXY TOTAL Routine 04/20/2025 9:06 AM EDT High cholesterol Benign prostatic hyperplasia without lower urinary tract symptoms Vitamin D deficiency PSA (PROSTATE SPECIFIC AG) Routine 04/20/2025 9:06 AM EDT High cholesterol Benign prostatic hyperplasia without lower urinary tract symptoms Vitamin D deficiency TESTOSTERONE, TOTAL Routine 04/20/2025 9 :06 AM EDT High cholesterol Benign prostatic hyperplasia without lower urinary tract symptoms Vitamin D deficiency TSH (THYROID STIMULATING HORMONE) Routine 04/20/2025 9:06 AM EDT High cholesterol Benign prostatic hyperplasia without lower urinary tract symptoms Vitamin D deficiency REFLEX TUBE FOR URINE CULTURE IF NEEDED Routine 04/20/2025 9:06 AM EDT High cholesterol Benign prostatic hyperplasia without lower urinary tract symptoms Vitamin D deficiency URINALYSIS WITH REFLEX TO CULTURE Routine 04/20/2025 9:06 AM EDT High cholesterol Benign prostatic hyperplasia without lower urinary tract symptoms Vitamin D deficiency CBC WITH DIFFERENTIAL Routine 04/20/2025 9:06 AM EDT High cholesterol Benign prostatic hyperplasia without lower urinary tract symptoms Vitamin D deficiency RENAL PROFILE Routine 04/20/2025 9:06 AM EDT High cholesterol Benign prostatic hyperplasia without lower urinary tract symptoms Vitamin D deficiency LIVER PROFILE Routine 04/20/2025 9:06 AM EDT High cholesterol Benign prostatic hyperplasia without lower urinary tract symptoms Vitamin D deficiency LIPID PROFILE Routine 04/20/2025 9:06 AM EDT High cholesterol Benign prostatic hyperplasia without lower urinary tract symptoms Vitamin D deficiency EXTERNAL COLONOSCOPY - SEE COMMENT Routine 10/18/2021 1:32 PM EST HEPATITIS C AB WITH REFLEX TO HCV,RNA,QUANT PCR Routine 11/08/2013 8:36 AM EDT Pure hypercholesterolemi a HTN (hypertension) from Last 3 Months or Most Recently Relevant to Health Maintenance Results * REFLEX TUBE FOR URINE CULTURE IF NEEDED (04/20/2025 9:06 AM EDT) Urine Culture Pending Culture not Indicated [facility] Urine 04/20/2025 9:06 AM EDT 04/20/2025 3:42 PM EDT us Rosales Ulrich MD URINE ORDERABLES Final Resul t [facility] [address] * DIFFERENTIAL (04/20/2025 9:06 AM EDT) Pathologist [facility] Neutrophils Absolute 3.96 1.50 - 7.80 10*3/uL [facility] Lymphocytes Absolute 1.14 0.80 - 3.90 10*3/uL [facility] Monocytes Absolute 0.60 0.20 - 0.90 10*3/uL [facility] Eosinophils Absolute 0.40 0.00 - 0.50 10*3/uL [facility] Basophils Absolute 0.06 0.00 - 0.20 10*3/uL [facility] Immature Granulocytes Absolute 0.02 0.00 - 0.10 10*3/uL [facility] Neutrophils Relative 64.1 % [facility] Lymphocytes Relative 18.4 % [facility] Monocytes Relative 9.7 % [facility] Eosinophils Relative 6.5 % [facility] Basophils Relative 1.0 % [facility] Immature Granulocytes 0.3 % [facility] nRBC 0 0 - 0 /100 WBC [facility] Whole Blood 04/20/2025 9:06 AM EDT 04/20/2025 3:34 PM EDT Rosales Ulrich MD HEMATOLOGY ORDERABLES Final Result [facility] [address] * CBC WITH DIFFERENTIAL (04/20/2025 9:06 AM EDT) Pathologist [facility] WBC 6.18 4.00 - 12.00 10*3/uL [facility] RBC 5.24 4.20 - 5.80 10*6/uL [facility] Hemoglobin 15.5 13.2 - 17.1 g/dL [facility] Hematocrit Blood 47.6 40.0 - 51.0 % [facility] MCV 90.8 80.0 - 100.0 fL [facility] MCH 29.6 27.0 - 33.0 pg [facility] MCHC 32.6 30.0 - 36.0 g/dL [facility] RDW 13.7 11.0 - 15.0 % [facility] Platelets 190 140 - 400 10*3/uL [facility] MPV 9.7 9.0 - 13.0 fL [facility] Whole Blood 04/20/2025 9:06 AM EDT 04/20/2025 3:33 PM EDT Rosales Ulrich MD HEMATOLOGY ORDERABLES Final Result Performing Organization Address [facility] Co de Phone Number [facility] [address] * (ABNORMAL) URINALYSIS WITH REFLEX TO CULTURE (04/20/2025 9:06 AM EDT) Color, UA Yellow Yellow,Straw ,Colorless [facility] Clarity, UA Clear Clear [facility] Glucose, UA Negative Negative mg/dL [facility] Bilirubin, UA Negative Negative [facility] Ketones, UA Negative Negative mg/dL [facility] Spec Grav, UA 1.019 1.005 - 1.035 [facility] Blood, UA Small(A) Negative [facility] pH, Urine 5.5 5.0 - 8.0 [facility] Protein, UA Negative Negative mg/dL [facility] Urobilinogen, UA <2.0 <2.0 mg/dL [facility] Nitrite, UA Negative Negative [facility] Leukocyte esterase UA Negative Negative [facility] RBC, UA 6(H) 0 - 3 /HPF [facility] WBC 1 0 - 5 /HPF [facility] Mucus, UA Present(A) None Seen /HPF [facility] Urine 04/20/2025 9:06 AM EDT 04/20/2025 3:40 PM EDT us Rosales Ulrich MD URINE ORDERABLES Final Resul t Performing Organization Address [facility]/ZIP Co de Phone Number [facility] [address] * TSH (THYROID STIMULATING HORMONE) (04/20/2025 9:06 AM EDT) TSH 1.47 0.35 - 4.94 uIU/mL [facility] Serum (Serum) 04/20/2025 9:0 6 AM EDT 04/20/2025 3:12 PM EDT Rosales Ulrich MD CHEMISTRY ORDERABLES Final R esult Performing Organization Address [facility] Co de Phone Number [facility] [address] * TESTOSTERONE, TOTAL (04/20/2025 9:06 AM EDT) Pathologist [facility] Testosterone 472 221 - 716 ng/dL [facility] Serum 04/20/2025 9:06 AM EDT 04/20/2025 3:12 PM EDT Rosales Ulrich MD CHEMISTRY ORDERABLES Final R esult Performing Organization Address [facility] de Phone Number [facility] [address] * (ABNORMAL) RENAL PROFILE (04/20/2025 9:06 AM EDT) Pathologist [facility] Sodium 142 135 - 146 mmol/L [facility] Potassium 4.5 3.5 - 5.1 mmol/L [facility] Chloride 108 98 - 110 mmol/L [facility] CO2 26 22 - 29 mmol/L [facility] Anion Gap 8 5 - 13 mmol/L [facility] Comment:Anion gap calculatio n does not include potassium (K+) value. BUN 19 7 - 25 mg/dL [facility] Creatinine 1.11 0.50 - 1.30 mg/dL [facility] Glucose 106(H) 71 - 99 mg/dL [facility] Comment:Reference range (71- 99 mg/dL) refers only to fasting samples, and does not apply to non-fasting samples. eGFR CKD-EPI 2020 71 See Note [facility] Comment: eGFR calculated with 2020 CKD-EPI equation using creatinine, patient's age and gender. Other factors, especially muscle mass, may affect accuracy and need to be considered. Patient values should be interpreted as a trend. The reference interval is >60 mL/min/1.73m2. Calcium 9.6 8.5 - 10.5 mg/dL [facility] Phosphorus 3.4 2.1 - 4.3 mg/dL [facility] Albumin 3.9 3.5 - 5.0 g/dL [facility] BUN/Creatinine Ratio 17 [facility] Serum (Serum) 04/20/2025 9:0 6 AM EDT 04/20/2025 3:12 PM EDT Rosales Ulrich MD CHEMISTRY ORDERABLES Final [facility] Performing Organization Address [facility] de Phone Number [facility] [address] * (ABNORMAL) PSA (PROSTATE SPECIFIC AG) (04/20/2025 9:06 AM EDT) Pathologist [facility] PSA 5.4(H) 0.0 - 4.0 ng/mL [facility] Comment: Total PSA is performed using the Pacheco Pattern Generator Operator chemiluminescent immunoassay method. Values obtained from different assay methods cannot be used interchangeably. PSA levels, regardless of value, should not be used as absolute evidence of the presence or absence of disease. Serum 04/20/2025 9:06 AM EDT 04/20/2025 3:12 PM EDT Rosales Ulrich MD CHEMISTRY ORDERABLES Final R [facility] Performing Organization Address [facility] de Phone Number [facility] [address] * LIVER PROFILE (04/20/2025 9:06 AM EDT) Total Bilirubin 0.6 0.2 - 1.2 mg/dL [facility] Bilirubin, Direct 0.3 0.0 - 0.5 mg/dL [facility] AST 17 0 - 40 U/L [facility] ALT 23 0 - 60 U/L [facility] Alkaline Phosphatase 64 33 - 140 U/L [facility] Total Protein 6.0 6.0 - 8.0 g/dL [facility] Albumin 3.9 3.5 - 5.0 g/dL [facility] Globulin 2.1 2.0 - 3.7 g/dL [facility] Albumin/Globulin Ratio 1.9 1.0 - 2.1 [facility] Serum (Serum) 04/20/2025 9:0 6 AM EDT 04/20/2025 3:12 PM EDT us Rosales Ulrich MD CHEMISTRY ORDERABLES Final R esult [facility] [address] * LIPID PROFILE (04/20/2025 9:06 AM EDT) Cholesterol 158 125 - 199 mg/dL [facility] Comment: TOTAL CHOLESTEROL INTERPRETATION: Less than 200 mg/dL Desireable 200-239 mg/dL Borderline Greater or Equal to 240 mg/dL High LDL Calculated 98 0 - 100 mg/dL [facility] Comment: LDL CHOLESTEROL INTERPRETATION: Less than 100 mg/dL Optimal 100-129 mg/dL Near optimal/above optimal 130-159 mg/dL Borderline High 160-189 mg/dL High Greater or Equal to 190 mg/dL Very High Note: LDL is calculated using the Friedewald equation. HDL 43 40 - 180 mg/dL [facility] Comment: HDL CHOLESTEROL INTERPRETATION: Less than 40 mg/dL Low Greater than 60 mg/dL Desirable Triglycerides 85 0 - 149 mg/dL [facility] Comment: TOTAL TRIGLYCERIDE INTERPRETATION: Less than 150 mg/dL Normal 150-199 mg/dL Borderline HIgh 200-499 mg/dL High Greater or Equal to 500 mg/dL Very High NONHDL Calculated 115 0 - 129 mg/dL [facility] Comment: NON-HDL INTERPRETATION: Less than 130 mg/dL Desirable 130-159 mg/dL Above Desirable 160-189 mg/dL Borderline High 190-219 mg/dL High Greater than or equal to 220 mg/dL Very High Serum (Serum) 04/20/2025 9:0 6 AM EDT 04/20/2025 3:12 PM EDT Rosales Ulrich MD CHEMISTRY ORDERABLES Final R esult Performing Organization Address [facility] de Phone Number [facility] [address] * VITAMIN D 25 HYDROXY TOTAL (04/20/2025 9:06 AM EDT) Vit D, 25-Hydroxy 32 30 - 80 ng/mL [facility] Comment: Therapy is based on measurement of Total 25-OHD, with levels <20 ng/mL indicative of Vitamin D deficiency, while levels between 20 ng/mL and 30 ng/mL suggest insufficiency. Sufficient levels are >or = 30 ng/mL. Serum 04/20/2025 9:06 AM EDT 04/20/2025 3:12 PM EDT Result [facility] Rosales Ulrich MD CHEMISTRY ORDERABLES Final R esult Performing Organization Address [facility] de Phone Number [facility] * EXTERNAL COLONOSCOPY - SEE COMMENT (10/18/2021 1:32 PM EST) Result [facility] Rosales Ulrich MD [place] IMAGING Final Result * HEPATITIS C AB (11/08/2013 8:36 AM EDT) HCV Qual Interp Nonreactive Nonreactive [facility] Comment:IgG and IgM anti-HCV not detected. Signal/Cutoff 0.06 0.00 - 1.00 S/CO [facility] Serum 11/08/2013 8:36 AM EDT 11/08/2013 10:16 AM EDT Rosales Ulrich MD HEMATOLOGY ORDERABLES Final Result Performing Organization Address [facility] de Phone Number [facility] [address] [place] [address] from Last 3 Months or Most Recently Relevant to Health Maintenance Insurance MEDICARE [facility] MEDICARE [facility] MEDICARE MEDICARE MEDICARE Member Subscriber Plan / Payer (Ef fective 2018-Present) Name:Amara Magdaleno Member ID:[id number] Relation to Subscriber:Self Name:Amara Magdaleno Subscriber ID:[id number] Payer ID:[id number] Group ID:Not on file Type:Medicare Address: [facility] PART A PCC [address] [place] [id number] MEDICARE PART A PCC [address] [place] [id number] Advance Directives For more information, please contact: [phone] * Full Code (Latest Code Status on File) Date Activated Date Inactivated Comments 01/03/2025 2:01 PM 01/21/2025 10:28 AM No automated chest compression devices for VAD Patients * Full Code Date Activated Date Inactivated Comments 06/19/2020 7:23 AM 12/03/2020 7:07 PM No automated chest compression devices for VAD Patients * Full Code Date Activated Date Inactivated Comments 11/08/2015 12:05 AM 11/09/2015 1:45 AM Care Teams Take Away Attendant Relationship Specialty Start Date End Date Rosales Ulrich MD PCP - General 04/26/09 Amara Todd MD Neurosurgery 10/04/20 Prabha Solorzano, WILBER [address] [place] [address] Registered Nurse 12/03/20 Logan Johnson MD [address] [place] [address] Orthopedic Surgery 01/03/21 Josee Benitez PA [address] [place] [address] Physician Skein Yarn Dyer Helper Orthopedic Surgery 01/04/21 Provider, Generic External Data 02/02/21 Amara Eduardo MD [address] [place], [place] [address] Orthopedics 03/02/21 Samantha Martin PA [address] [place] [address] Physician Skein Yarn Dyer Helper Orthopedic Surgery 04/02/21 Yasmine Tatum NP [address] [place] [address] Nurse Practitioner Nurse Practitioner 12/17/21 Beulah Conner NP [address] [place] [address] Nurse Practitioner Nurse Practitioner, Family 05/03/22 Arben Wheeler MD [address] [place] [address] Internal Medicine, Sleep Medicine 11/15/22 Hue Vuong NP [address] [place] [address] Nurse Practitioner Nurse Practitioner, Acute Care 12/16/22 Bernabe Trivedi MD [address] [place] [address] Otolaryngology 01/08/23
--- OUTSIDE RECORDS SUMMARY | 2025-07-09 16:56 | XMS_ITS | Clinical Summary ---
Author Organization [facility] Address [facility] [place] [address] Phone Care Team Providers Care Research Methods Instructor Name Role Phone Funmi JEFFERS, Randi [facility] [phone] Conditions or Problems Problem Name Problem Code Onset Date Status Entry Date Provider Comment Standard Description Annotate NECK PAIN 22056509 (SNOMED CT) 10/12 Active 10/12 Randi Choudhary MD Neck pain BACK PAIN, LUMBAR, CHRONIC [id number] (SNOMED CT) 10/12 Active 10/12 Radni Choudhary MD Chronic low back pain Take Note of HYPERTENSION [id number] (SNOMED CT) 10/12 Active 10/12 Jackie Guzman MA Hypertensive disorder Take Note of HYPERCHOLESTE ROLEMIA 44002291 (SNOMED CT) 10/12 Active 10/12 Jackie Guzman MA Hypercholesterole tasneem Medications Medication Instructions Start Date Stop Date Generic Name [facility] Provider CADUET 10-80 MG TABS Non[place] AMLODIPINE-A TORVASTATIN [id number] Jakcie Thomas JOLLEY Medications Administered No information available. Allergies, Adverse Reactions, Alerts Observed no known allergies at Results No information available. Plan of Care No information available. Procedures No information available. Vital Signs Date Name Value Unit Description BMI (Body Mass Index) 29.29 kg/m2 Bod y Mass Index (Ratio) BP Diastolic 70 mm[Hg] blood pressu re, diastolic BP Systolic 130 mm[Hg] blood pressur e, systolic Height 71 [in_us] height E&M Weight Measured 210 [lb_av] weight E& M Weight Measured 210 [lb_av] weight E& M Immunizations No information available. Advance Directives No information available.
--- OUTSIDE RECORDS SUMMARY | 2025-07-09 16:56 | XMS_ITS | Encounter Summary ---
Author Organization [facility] Address [address] [place] [address] Care Team Providers Care Fruit Picker Machine Operator Name Role Phone Rosales Ulrich MD Primary Care Provider Bryce Todd MD Unavailable Unavailabl e Prabha Solorzano RN Unavailable Logan Johnson MD Unavailable Josee Benitez Unavailable Provider, Generic External Data Unavailable Unavailable Bryce Eduardo MD Unavailable Samantha Martin Unavailable [phone] Yasmine Tatum HAT CONDITIONER Unavailable Beulah Conner NP Unavailable [phone] Arben Wheeler MD Unavailable [phone] Hue Vuong NP Unavailable [phone] Bernabe Trivedi MD Unavailable Reason for Visit * Reason Comments Medications Refill Encounter Details Date Type Department Care Team (Late st Contact Info) Description 05/11/2025 Refill [facility] [address] [facility] [address] [place] [address] Kirti Guzman NP [address] [place] [address] [place] [address] Medications Refill Social History Tobacco Use Types [...] Brad Atkins RN documented in this encounter Miscellaneous Notes * Telephone Encounter - Arthur Kern RMA - 05/12/2025 8:27 AM EDT documented in this encounter Plan of Treatment Upcoming Encounters Date Type Department Care Team (Late st Contact Info) Description 07/20/2025 1:00 PM EST Appointment [facility] Physicians - Heart & Vascular, [facility] [address] [place] [address] [address] [place] [address] [place] [address] [place] [address] Office [address] [place] [address] 10/19/2025 9:10 AM EST Appointment [facility] Physicians - Primary Care, [facility] [address] [place] [address] Office [address] [place] [address] Rosales Ulrich MD [address] [place] [address] [address] [place] [address] 11/28/2025 9:20 AM EDT Appointment [facility] - Sleep Medicine, [address] Office [address] [place] [address] [place] [address] [place] [address] [address] [place] [address] 06/14/2026 11:00 AM EDT Appointment [facility] & [address] [place] [address] Kirti Guzman NP [address] [place] [address] [place] [address] documented as of this encounter Visit Diagnoses Diagnosis Mild cognitive impairment Mild cognitive impairment, so stated documented in this encounter Additional Health Concerns Assessment Noted Time PHQ-9 Depression Total Score: 1 02/05/20 23 4:17 PM EDT documented as of this encounter Care Teams Fruit Picker Machine Operator Relationship Specialty Start Date End Date Rosales Ulrich MD PCP - General 04/26/09 Bryce Todd MD Neurosurgery 10/04/20 Prabha Solorzano, WILBER [address] [place] [address] Registered Nurse 12/03/20 Logan Johnson MD [address] [place] [address] Orthopedic Surgery 01/03/21 Josee Benitez PA [address] [place] [address] Physician Meat Sales And Storage Manager Orthopedic Surgery 01/04/21 Provider, Generic External Data 02/02/21 Bryce Eduardo MD [address] [place] [address] Orthopedics 03/02/21 Samantha Martin PA [address] [place] [address] Physician Meat Sales And Storage Manager Orthopedic Surgery 04/02/21 Yasmine Tatum NP [address] [place] [address] Nurse Practitioner Nurse Practitioner 12/17/21 Beulah Conner NP [address] [place] [address] Nurse Practitioner Nurse Practitioner, Family 05/03/22 Arben Wheeler MD [address] [place], [place] [address] Internal Medicine, Sleep Medicine 11/15/22 Hue Vuong NP [address] [facility] [place], [place] [address] Nurse Practitioner Nurse Practitioner, Acute Care 12/16/22 Bernabe Trivedi MD [address] [facility] [place] [address] Otolaryngology 01/08/23 documented as of this encounter
--- OUTSIDE RECORDS SUMMARY | 2025-07-09 16:56 | XMS_ITS | Encounter Summary ---
Author Organization [facility] Address [address] [place] [address] Care Team Providers Care Sow Farm Barn Technician Name Role Phone Rosales Ulrich MD Primary Care Provider Bryce Todd MD Unavailable Unavailabl e Prabha Solorzano RN Unavailable [phone] Logan Johnson MD Unavailable [phone] Josee Benitez Unavailable Provider, Generic External Data Unavailable Unavailable Bryce Eduardo MD Unavailable Samantha Martin Unavailable Yasmine Tatum ECHOCARDIOGRAPHY TECH Unavailable Beulah Conner NP Unavailable [phone] Arben Wheeler MD Unavailable [phone] Hue Vuong NP Unavailable [phone] Bernabe Trivedi MD Unavailable Reason for Visit * Reason Onset Date Comments Orders Needed 12/22/2024 Pt stated that a t office visit on 12/14/24 Dr. Dick stated he was going to order an Angiogram Encounter Details Date Type Department Care Team (Late st Contact Info) Description 12/22/2024 Telephone [facility] Physicians - Heart & Vascular, [place] [address] [place] [address] Darin Dick MD Orders Needed (Pt stated that at office visit on 12/14/24 Dr. Dick stated he was going to order an Angiogram/) Social History Tobacco Use Types Packs/Day Years Used Date Smoking Tobacco: Never Smokeless Tobacco: Former Snuff Alcohol Use Standard Drinks/Week Comments No 0 (1 standard drink = 0.6 oz pur e alcohol) PHQ-2 Answer Date Recorded PHQ-9 Auto Total 0 03/17/2024 Sex and Gender Information Value Date Recorded [...] of Assessment Author No 11/07/2015 11:50 PM LUISAT Brad Atkins RN documented as of this encounter Mental Status * Because of a physical, mental, or emotional condition, do you have serious difficulty concentrating, remembering, or making decisions? Answer Entry Date Author No 11/07/2015 11:50 PM Brad Holm RN documented in this encounter Miscellaneous Notes * Telephone Encounter - Concha Dang RN - 12/22/2024 10:09 AM EDT A case request to clinical genetics laboratory chief was placed this RN was not made aware of ordered case request Secure chat sent to clinical genetics laboratory chief to schedule * Telephone Encounter - Ambrosio Bray - 12/22/2024 9:49 AM EDT Pt is calling stated that at office visit on 12/14/24 Dr. Dick stated he was going to order a Angiogram Please call pt when order is available so he can schedule testing. [phone] documented in this encounter Plan of Treatment Upcoming Encounters Date Type Department Care Team (Late st Contact Info) Description 07/20/2025 1:00 PM EST Appointment [facility] Physicians - Heart & Vascular, [address] Office [facility] [address] [place] [address] Kate Singh DO [address] [place] [address] [address] [place] [address] 10/19/2025 9:10 AM EST Appointment [facility] Physicians - Primary Care, [address] [place] [address] Rosales Ulrich MD [address] [place] [address] [address] [place] [address] 11/28/2025 9:20 AM EDT Appointment [facility] Physicians - Sleep Medicine, [address] [place] [address] [place] [address] [place] [address] [address] [place], [place] [address] 06/14/2026 11:00 AM EDT Appointment [facility] & [place] [address] [facility] [address] [place] [phone] Kirti Guzman NP [address] [place], [place] [address] documented as of this encounter Visit Diagnoses Not on filedocumented in this encounter Additional Health Concerns Assessment Noted Time PHQ-9 Depression Total Score: 1 02/05/20 23 4:17 PM EDT documented as of this encounter Care Teams Sow Farm Barn Technician Relationship Specialty Start Date End Date Rosales Ulrich MD PCP - General 04/26/09 Bryce Todd MD Neurosurgery 10/04/20 Prabha Solorzano, WILBER [address] [place] [address] Registered Nurse 12/03/20 Logan Johnson MD [address] [place] [address] Orthopedic Surgery 01/03/21 Josee Benitez PA [address] [place] [address] Physician Automobile Spring Repairer Orthopedic Surgery 01/04/21 Provider, Generic External Data 02/02/21 Bryce Eduardo MD [address] [place] [address] Orthopedics 03/02/21 Samantha Martin PA [address] [place] [address] Physician Automobile Spring Repairer Orthopedic Surgery 04/02/21 Yasmine Tatum NP [address] [place] [address] Nurse Practitioner Nurse Practitioner 12/17/21 Beulah Conner NP [address] [facility] [address] [place] [address] Nurse Practitioner Nurse Practitioner, Family 05/03/22 Arben Wheeler MD [address] [facility] [place] [address] Internal Medicine, Sleep Medicine 11/15/22 Hue Vuong NP [address] [facility] [place] [address] Nurse Practitioner Nurse Practitioner, Acute Care 12/16/22 Bernabe Trivedi MD [address] [place] [address] Otolaryngology 01/08/23 documented as of this encounter
--- OUTSIDE RECORDS SUMMARY | 2025-07-09 16:56 | XMS_ITS | Encounter Summary ---
Author Organization [facility] Address [address] [place] [address] Care Team Providers Care District Manager Postal Service Name Role Phone Rosales Ulrich MD Primary Care Provider [phone] Bryce Todd MD Unavailable Unavailabl e Prabha Solorzano RN Unavailable [phone] Logan Johnson MD Unavailable [phone] Josee Benitez Unavailable Provider, Generic External Data Unavailable Unavailable Bryce Eduardo MD Unavailable Samantha Martin Unavailable Yasmine Tatum COORDINATE MEASURING MACHINE OPERATOR Unavailable [phone] Beulah Conner NP Unavailable [phone] Arben Wheeler MD Unavailable [phone] Hue Vuong NP Unavailable [phone] Bernabe Trivedi MD Unavailable [phone] Reason for Visit * Reason Comments Medications Refill Encounter Details Date Type Department Care Team (Late st Contact Info) Description 06/09/[address] [facility] Physicians - Primary Care, [facility] [address] [facility] Medical Office [address] [place] [address] [place] [address] [place] [address]. [address] [place] [address] Medications Refill Social History Tobacco Use Types [...] Description 07/20/2025 1:00 PM EST Appointment [facility] Physicians - Heart & Vascular, [place] [address] [place] [address] Medical Office [address] [place] [address] Kate Singh DO [address] Medical Office [address] [place] [phone] 10/19/2025 9:10 AM EST Appointment [facility] Physicians - Primary Care, [place] [address] [place] [address] [address] [place] [phone] Rosales Ulrich MD [address] [facility] [address] [place] [address] 11/28/2025 9:20 AM EDT Appointment [facility] Physicians - Sleep Medicine, [address] [place] [address] Hue Vuong NP [address] [facility] [address] [place] [address] 06/14/2026 11:00 AM EDT Appointment [facility] & [address] [place] [address] Kirti Guzman NP [address] [place] [address] [place] [address] documented as of this encounter Visit Diagnoses Not on filedocumented in this encounter Additional Health Concerns Assessment Noted Time PHQ-9 Depression Total Score: 1 02/05/20 23 4:17 PM EDT documented as of this encounter Care Teams District Manager Postal Service Relationship Specialty Start Date End Date Rosales Ulrich MD PCP - General 04/26/09 Bryce Todd MD Neurosurgery 10/04/20 Prabha Solorzano, WILBER [address] [place] [address] Registered Nurse 12/03/20 Logan Johnson MD [address] [place] [address] Orthopedic Surgery 01/03/21 Josee Benitez PA [address] [place] [address] Physician Corporate Strategy Analyst Orthopedic Surgery 01/04/21 Provider, Generic External Data 02/02/21 Bryce Eduardo MD [address] [place], [place] [address] Orthopedics 03/02/21 Samantha Martin PA [address] [place], [place] [address] Physician Corporate Strategy Analyst Orthopedic Surgery 04/02/21 Yasmine Tatum NP [address] [place] [address] Nurse Practitioner Nurse Practitioner 12/17/21 Beulah Conner NP [address] [place] [address] Nurse Practitioner Nurse Practitioner, Family 05/03/22 Arben Wheeler MD [address] [place] [address] Internal Medicine, Sleep Medicine 11/15/22 Hue Vuong NP [address] [place] [address] Nurse Practitioner Nurse Practitioner, Acute Care 12/16/22 Bernabe Trivedi MD [address] [facility] [place] [address] Otolaryngology 01/08/23 documented as of this encounter
--- OUTSIDE RECORDS SUMMARY | 2025-07-09 16:56 | XMS_ITS | Encounter Summary ---
Author Organization [facility] Address [address] [facility] [place] [address] Care Team Providers Care Panel Laminator Name Role Phone Rosales Ulrich MD Primary Care Provider + Encounter Details Date Type Department Care Team (Late st Contact Info) Description 08/14/2015 PAT Telephone [facility] PAT [address] [place], [place] [phone] Stephanie Mccray RN Social History Tobacco Use Types Packs/Day Years Used Date Smoking Tobacco: Never Alcohol Use Standard Drinks/Week Comments Not Asked 0 (1 standard drink = 0.6 oz pur e alcohol) Sex and Gender Information Value Date Recorded Sex Assigned at Not on file Legal Sex Male 11:23 PM EST Gender Identity Not on file Sexual Orientation Not on file documented as of this encounter Plan of Treatment Not on file documented as of this encounter Visit Diagnoses Not on filedocumented in this encounter Care Teams Panel Laminator Relationship Specialty Start Date End Date Rosales Ulrich MD [address] [facility] [address] [place] [address] PCP - General 08/01/15 documented as of this encounter
--- OUTSIDE RECORDS SUMMARY | 2025-07-09 16:56 | XMS_ITS | Encounter Summary ---
Author Organization [facility] Address [facility] [place] [address] Care Team Providers Care Inventory Associate And Driver Name Role Phone Rosales Ulrich MD Primary Care Provider Bryce Todd MD Unavailable Unavailabl e Prabha Solorzano RN Unavailable Logan Johnson MD Unavailable Josee Benitez Unavailable Provider, Generic External Data Unavailable Unavailable Bryce Eduardo MD Unavailable Samantha Martin Unavailable Yasmine Tatum VACCINE MANAGER Unavailable Beulah Conner NP Unavailable Arben Wheeler MD Unavailable [phone] Hue Vuong NP Unavailable [phone] Bernabe Trivedi MD Unavailable Reason for Visit * Reason Comments Medications Refill Encounter Details Date Type Department Care Team (Late st Contact Info) Description 06/20/2025 Refill [facility] Physicians - Heart & Vascular, [address] Medical Office [address] [place] [address] Kate Singh DO [address] [facility] Building [address] [place] [phone] Medications Refill Social History Tobacco Use Types [...] Date Author No 11/07/2015 11:50 PM EDT Bard Atkins RN documented in this encounter Plan of Treatment Upcoming Encounters Date Type Department Care Team (Late st Contact Info) Description 07/20/2025 1:00 PM EST Appointment [facility] Physicians - Heart & Vascular, [place] [address] [place] [address] Building [address] [place] [phone] Kate Singh DO [address] [facility] Building [address] [place] [phone] 10/19/2025 9:10 AM EST Appointment [facility] Physicians - Primary Care, [address] Office [address] [place] [phone] Rosales Ulrich MD [address] [place] [address] [address] [place] [address] 11/28/2025 9:20 AM EDT Appointment [facility] Physicians - Sleep Medicine, [address] Office [address] [place] [phone] Hue Vuong NP [address] [facility] [address] [place], [place] [address] 06/14/2026 11:00 AM EDT Appointment [facility] & [place] [address] [facility] [address] [place] [address] Kirti Guzman NP [address] [place] [address] documented as of this encounter Visit Diagnoses Diagnosis Coronary artery disease, unspecified vessel or lesion type, unspecified whether angina present, unspecified whether [place] or transplanted heart Abnormal electrocardiogram (ECG) (EKG) documented in this encounter Additional Health Concerns Assessment Noted Time PHQ-9 Depression Total Score: 1 02/05/20 23 4:17 PM EDT documented as of this encounter Care Teams Inventory Associate And Driver Relationship Specialty Start Date End Date Rosales Ulrich MD PCP - General 04/26/09 Bryce Todd MD Neurosurgery 10/04/20 Prabha Solorzano, [address] [place] [address] Registered Nurse 12/03/20 Logan Johnson MD [address] [place] [address] Orthopedic Surgery 01/03/21 Josee Benitez PA [address] [place] [address] Physician Hay Stacker Orthopedic Surgery 01/04/21 Provider, Generic External Data 02/02/21 Bryce Eduardo MD [address] [place] [address] Orthopedics 03/02/21 Samantha Martin PA [address] [place], [place] [address] Physician Hay Stacker Orthopedic Surgery 04/02/21 Yasmine Tatum NP [address] [place] [address] Nurse Practitioner Nurse Practitioner 12/17/21 Beulah Conner NP [address] [place] [address] Nurse Practitioner Nurse Practitioner, Family 05/03/22 Arben Wheeler MD [address] [place] [address] Internal Medicine, Sleep Medicine 11/15/22 Hue Vuong NP [address] [facility]. [address] [place] [address] Nurse Practitioner Nurse Practitioner, Acute Care 12/16/22 Bernabe Trivedi MD [address] [facility] [address] [place] [address] Otolaryngology 01/08/23 documented as of this encounter
--- OUTSIDE RECORDS SUMMARY | 2025-07-09 16:56 | XMS_ITS | Encounter Summary ---
Author Organization [facility] Address [address] [place] [address] Care Team Providers Care Felt Finisher Name Role Phone Rosales Ulrich MD Primary Care Provider Bryce Todd MD Unavailable Unavailabl e Prabha Solorzano RN Unavailable [phone] Logan Johnson MD Unavailable Josee Benitez Unavailable Provider, Generic External Data Unavailable Unavailable Bryce Eduardo MD Unavailable Samantha Martin Unavailable Yasmine Tatum ROLL TUBE SETTER Unavailable Beulah Conner NP Unavailable [phone] Arben Wheeler MD Unavailable [phone] Hue Vuong NP Unavailable [phone] Bernabe Trivedi MD Unavailable [phone] Reason for Visit * Reason Onset Date Comments Questions About Medications 05/12/2025 Encounter Details Date Type Department Care Team (Late st Contact Info) Description 05/12/2025 Telephone [facility] & [address] [place] [address] Deanna Sebastian LPN [address] [place] [address] [place] [address] Questions About Medications Social History Tobacco Use Types Packs/Day Years [...] encounter Miscellaneous Notes * Telephone Encounter - Kirti Guzman NP - 05/12/2025 1:03 PM EDT Eliezeray * Telephone Encounter - Deanna Sebastian LPN - 05/12/2025 12:48 PM EDT Spoke to Natalie she states he has been taking the 20mg she states she sets up his medication she's not sure why he told the PCP he wasn't taking it. * Telephone Encounter - Kirti Guzman NP - 05/12/2025 11:45 AM EDT Citalopram was taken off med list by PCP who noted that Phil was not taking it. If so we would not start 20 mg we would start 10 mg. Seems best to assess this @ a visit, but I will send the order with plan for him to take a half pill for 2 weeks before increasing to 20 mg. * Telephone Encounter - Deanna Sebastian LPN - 05/12/2025 11:13 AM EDT The patient's called asking for a refill to be sent in for his citalopram she states she didn't no he need to be seen in 6 months from his last office visit and she has schedule him an appointment. She asking can a 30 day be sent to the pharmacy on file? documented in this encounter Plan of Treatment Upcoming Encounters Date Type Department Care Team (Late st Contact Info) Description 07/20/2025 1:00 PM EST Appointment [facility] Physicians - Heart & Vascular, [address] Medical Office [address] [place] [phone] [place] [address] [place] [address] Medical Office [address] [place] [phone] 10/19/2025 9:10 AM EST Appointment [facility] Physicians - Primary Care, ArJose Angel [address] Medical Office [address] [place] [phone] Rosales Ulrich MD [address] [facility] [address] [place] [address] 11/28/2025 9:20 AM EDT Appointment [facility] Physicians - Sleep Medicine, [address] Medical Office [address] [place] [phone] Hue Vuong NP [address] [facility] [place] [address] 06/14/2026 11:00 AM EDT Appointment [facility] & [address] [place] [phone] Kirti Guzman NP [address] [place] [address] [place] [address] documented as of this encounter Visit Diagnoses Diagnosis Mild cognitive impairment- Primary Mild cognitive impairment, so stated documented in this encounter Additional Health Concerns Assessment Noted Time PHQ-9 Depression Total Score: 1 02/05/20 23 4:17 PM EDT documented as of this encounter Care Teams Felt Finisher Relationship Specialty Start Date End Date Rosales Ulrich MD PCP - General 04/26/09 Bryce Todd MD Neurosurgery 10/04/20 Prabha Solorzano, [place] [address] [facility] [place] [address] Registered Nurse 12/03/20 Logan Johnson MD [address] [place] [address] Orthopedic Surgery 01/03/21 Josee Benitez PA [address] [place] [address] Physician [place]ade Hardware Installer Orthopedic Surgery 01/04/21 Provider, Generic External Data 02/02/21 Bryce Eduardo MD [address] [place] [address] Orthopedics 03/02/21 Samantha Martin PA [address] [place] [address] Physician [place] Hardware Installer Orthopedic Surgery 04/02/21 Yasmine Tatum NP [address] [place] [address] Nurse Practitioner Nurse Practitioner 12/17/21 Beulah Conner NP [address] [place] [address] Nurse Practitioner Nurse Practitioner, Family 05/03/22 Arben Wheeler MD [address] [place] [address] Internal Medicine, Sleep Medicine 11/15/22 Hue Vuong NP [address] [place] [address] Nurse Practitioner Nurse Practitioner, Acute Care 12/16/22 Bernabe Trivedi MD [address] [facility] [address] [place] [address] Otolaryngology 01/08/23 documented as of this encounter
--- OUTSIDE RECORDS SUMMARY | 2025-07-09 16:57 | XMS_ITS | Encounter Summary ---
Author Organization [facility] Address [address] [place] [address] Care Team Providers Care Production Controller Name Role Phone Rosales Ulrich MD Primary Care Provider [phone] Bryce Todd MD Unavailable Unavailabl e Prabha Solorzano RN Unavailable Logan Johnson MD Unavailable Josee Benitez Unavailable Provider, Generic External Data Unavailable Unavailable Bryce Eduardo MD Unavailable Samantha Martin Unavailable Yasmine Tatum INSURANCE UNDERWRITING ASSISTANT Unavailable Beulah Conner NP Unavailable Arben Wheeler MD Unavailable [phone] Hue Vuong NP Unavailable [phone] Bernabe Trivedi MD Unavailable [phone] Encounter Details Date Type Department Care Team (Latest Contact Info) Description 01/09/2023 Preop Surgical Orders [facility] Physicians - Ear, Nose & Throat, [place] [address] [place] [address] Bernabe Trivedi MD [address] [place] [address] Obstructive sleep apnea (Primary Dx) Social History Tobacco Use Types Packs/Day Years [...] Orientation Straight 05/11/2020 12 :58 PM EDT COVID-19 Exposure Response Date Recorded In the last 10 days, have domenico u been in contact with someone who was confirmed or suspected to have Coronavirus/COVID-19? No / Unsure 01/08/2023 8:28 AM EDT documented as of this encounter Functional [...] Description 07/20/2025 1:00 PM EST Appointment [facility] Physicians - Heart & Vascular, [address] Office [address] [place] [address] [place] [address] [place] [address] Office [address] [place] [address] 10/19/2025 9:10 AM EST Appointment [facility] Physicians - Primary Care, [address] Office [address] [place] [address] Rosales Ulrich MD [address] [place] [address] [address] [place] [address] 11/28/2025 9:20 AM EDT Appointment [facility] Physicians - Sleep Medicine, [address] Office [facility] [address] [place] [phone] [place] [address] [place] [address] [address] [place] [address] 06/14/2026 11:00 AM EDT Appointment [facility] & [address] [place] [address] Kirti Guzman NP [address] [place] [address] [place] [address] documented as of this encounter Visit Diagnoses Diagnosis Obstructive sleep apnea- Primary Obstructive sleep apnea (adult) (pediatric) documented in this encounter Additional Health Concerns Assessment Noted Time PHQ-9 Depression Total Score: 1 12/18/19 22 1:27 PM EDT documented as of this encounter Care Teams Production Controller Relationship Specialty Start Date End Date Rosales Ulrich MD PCP - General 04/26/09 Bryce Todd MD Neurosurgery 10/04/20 Prabha Solorzano, W[place] [address] [place] [address] Registered Nurse 12/03/20 Logan Johnson MD [address] [place] [address] Orthopedic Surgery 01/03/21 Josee Benitez PA [address] [place] [address] Physician Blanching Machine Operator Orthopedic Surgery 01/04/21 Provider, Generic External Data 02/02/21 Bryce Eduardo MD [address] [place] [address] Orthopedics 03/02/21 Samantha Martin PA [address] [place] [address] Physician Blanching Machine Operator Orthopedic Surgery 04/02/21 Yasmine Tatum NP [address] [place] [address] Nurse Practitioner Nurse Practitioner 12/17/21 Beulah Conner NP [address] [place] [address] Nurse Practitioner Nurse Practitioner, Family 05/03/22 Arben Wheeler MD [address] [place], [place] [address] Internal Medicine, Sleep Medicine 11/15/22 Hue Vuong NP [address] [facility] [place], [place] [address] Nurse Practitioner Nurse Practitioner, Acute Care 12/16/22 Bernabe Trivedi MD [address] [facility] [place] [address] Otolaryngology 01/08/23 documented as of this encounter
--- OUTSIDE RECORDS SUMMARY | 2025-07-09 16:57 | XMS_ITS | Encounter Summary ---
Author Organization [facility] Address [address] [place] [address] Care Team Providers Care Social Media Intern Name Role Phone Rosales Ulrich MD Primary Care Provider [phone] Bryce Todd MD Unavailable Unavailabl e Prabha Solorzano RN Unavailable [phone] Logan Johnson MD Unavailable Josee Benitez Unavailable Provider, Generic External Data Unavailable Unavailable Bryce Eduardo MD Unavailable Samantha Martin Unavailable [phone] Yasmine Tatum GROUND INTELLIGENCE OFFICER Unavailable [phone] Beulah Conner NP Unavailable [phone] Arben Wheeler MD Unavailable [phone] Hue Vuong NP Unavailable [phone] Bernabe Trivedi MD Unavailable Encounter Details Date Type Department Care Team (Late st Contact Info) Description 04/03/2010 Abstract [facility] Physicians - Primary Care, [facility] [address] [facility] [address] [place] [phone] Rosales Ulrich MD [address] [place] [address]. [address] [place] [address] Social History Tobacco Use Types Packs/Day Years Used Date Smoking Tobacco: Never Alcohol Use Standard Drinks/Week Comments No 0 (1 standard drink = 0.6 oz pur e alcohol) Sex and Gender Information Value Date Recorded Sex Assigned at Male 05/11/2020 12:58 PM EDT Legal Sex Male 2:43 PM EST Gender Identity Male 05/11/2020 12:58 PM EDT Sexual Orientation Straight 05/11/2020 12 :58 PM EDT documented as of this encounter Plan of Treatment Upcoming Encounters Date Type Department Care Team (Late st Contact Info) Description 07/20/2025 1:00 PM EST Appointment [facility] Physicians - Heart & Vascular, [address] Medical Office [address] [place] [phone] [place] [address] [place] [address] Medical Office [address] [place] [address] 10/19/2025 9:10 AM EST Appointment [facility] Physicians - Primary Care, [address] Office [address] [place] [address] [place] [address] [place] [address] [address] [place] [address] 11/28/2025 9:20 AM EDT Appointment [facility] Physicians - Sleep Medicine, [address] Medical Office Building [address] [place] [address] [place] [address] [place], [place] [address] [address] [place], [place] [address] 06/14/2026 11:00 AM EDT Appointment [facility] & [address] [place] [phone] Kirti Guzman, BREEZY [address] [place] [address] documented as of this encounter Visit Diagnoses Not on filedocumented in this encounter Additional Health Concerns Infection Onset Date Last Indicated Resolved Time Coronavirus COVID-19 Comment:01/23/2021 Tested Positive Covid-19 01/23/2021 01/24/2021 03/04/2021 4:06 AM E DT documented as of this encounter Care Teams Social Media Intern Relationship Specialty Start Date End Date Rosales Ulrich MD PCP - General 04/26/09 Bryec Todd MD Neurosurgery 10/04/20 Prabha Solorzano, RN [address] [facility] [place] [address] Registered Nurse 12/03/20 Logan Johnson MD [address] [place] [address] Orthopedic Surgery 01/03/21 Josee Benitez PA [address] [place] [address] Physician Senior Brand Manager Orthopedic Surgery 01/04/21 Provider, Generic External Data 02/02/21 Bryce Eduardo MD [address] [place] [address] Orthopedics 03/02/21 Samantha Martin PA [address] [place] [address] Physician Senior Brand Manager Orthopedic Surgery 04/02/21 Yasmine Tatum NP [address] [place] [address] Nurse Practitioner Nurse Practitioner 12/17/21 Beulah Conner NP [address] [place] [address] Nurse Practitioner Nurse Practitioner, Family 05/03/22 Arben Wheeler MD [address] [place] [address] Internal Medicine, Sleep Medicine 11/15/22 Hue Vuong NP [address] [place] [address] Nurse Practitioner Nurse Practitioner, Acute Care 12/16/22 Bernabe Trivedi MD [address] [place], [place] [address] Otolaryngology 01/08/23 documented as of this encounter
--- OUTSIDE RECORDS SUMMARY | 2025-07-09 16:57 | XMS_ITS | Clinical Summary ---
Author Organization [facility] Address [address] [facility] [place] [address] Care Team Providers Care Contact Agent Name Role Phone Rosales Ulrich MD Primary Care Provider + Allergies No known active allergies Medications UNABLE TO FIND daily Naturessunshine Blood Pressurex Active UNABLE TO FIND Lecithin Activ e UNABLE TO FIND ACS Activ e Active Problems Problem Noted Date Diagnosed Date Ganglion of wrist 09/13/2013 Carpal tunnel syndrome 09/13/2013 [facility] arthritis, thumb, degenerative 09/13/2013 Wrist pain 09/13/2013 Family History Medical History Relation Name Comments Anesth Problems Neg Hx Broken Bones Neg Hx Cancer Neg Hx Clotting Disorder Neg Hx Collagen Disease Neg Hx Diabetes Neg Hx Dislocations Neg Hx Osteoporosis Neg Hx Rheumatologic Disease Neg Hx Scoliosis Neg Hx Severe Sprains Neg Hx Relation Name Status Comments Father Mother Alive Social History Tobacco Use Types Packs/Day Years Used Date Smoking Tobacco: Never Smokeless Tobacco: Former Snuff Comments:years ago-on and of f Alcohol Use Standard Drinks/Week Comments No 0 (1 standard drink = 0.6 oz pur e alcohol) Sex and Gender Information Value Date Recorded Sex Assigned at Not on file Legal Sex Male 11:23 PM EST Gender Identity Not on file Sexual Orientation Not on file Last Filed Vital Signs Vital Sign Reading Time Taken Comments Blood Pressure 136/85 09/23/2017 1:20 PM EST Pulse 76 09/23/2017 1:20 PM EST Temperature 36.4 C (97.6 F) 09/23/2017 1:05 PM EST Respiratory Rate 16 09/23/2017 1:20 PM EST Oxygen Saturation 94% 09/23/2017 1:20 PM EST Inhaled Oxygen Concentration - - Weight 102.1 kg (225 lb 1.4 oz) 10/29/2017 8:34 AM EDT Height 15.2 cm (6 ) 09/23/2017 9:57 AM EST Body Mass Index 4395.98 09/23/2017 9:57 AM EST Plan of Treatment Not on file Insurance [facility] Care Teams Contact Agent Relationship Specialty Start Date End Date Rosales Ulrich MD [address] [place] [address] PCP - General 08/01/15
--- OUTSIDE RECORDS SUMMARY | 2025-07-09 16:57 | XMS_ITS | Encounter Summary ---
Author Organization [facility] Address [address] [place] [address] Care Team Providers Care Pattern Cleaner Name Role Phone Rosales Ulrich MD Primary Care Provider + Reason for Visit * Reason Comments Medication Refill Encounter Details Date Type Department Care Team (Late st Contact Info) Description 05/23/2025 Refill [facility] [place] [address] Cirilo Koch APRN [address] [place] [address] Medication Refill Social History Tobacco Use Types Packs/Day Years Used Date Smoking Tobacco: Former Cigarettes Q uit: 08/18/2014 Smokeless Tobacco: Former Sex and Gender Information Value Date Recorded Sex Assigned at Not on file Legal Sex Male 5:53 AM EDT Gender Identity Not on file Sexual Orientation Not on file documented as of this encounter Plan of Treatment Not on file documented as of this encounter Visit Diagnoses Diagnosis Contusion of left knee, initial encounter documented in this encounter Care Teams Pattern Cleaner Relationship Specialty Start Date End Date Rosales Ulrich MD [address] [place] [phone] PCP - General Internal Medicine 09/13/23 documented as of this encounter
--- OUTSIDE RECORDS SUMMARY | 2025-07-09 16:57 | XMS_ITS | Clinical Summary ---
Author Organization [facility] Address [address] [address] Phone Care Team Providers Care Stevedoring Superintendent Name Role Phone Rosales Ulrich MD Primary Care Provider + Allergies Active Allergy Reactions Criticality Noted Date Comments Adhesive Tape-Silicones Rash 01/15/2024 Medications acetaminophen (TYLENOL) 500 mg Oral Tablet Take 500 mg by mouth every 4 hours as needed. Active amLODIPine (NORVASC) 10 mg Oral Tablet Take 10 mg by mouth daily. 1 Active atorvastatin (LIPITOR) 80 mg Oral Tablet Take 80 mg by mouth. 1 Active diclofenac (VOLTAREN) 75 mg Oral Tablet, Delayed Release (E.C.) Take 75 mg by mouth. 1 Active docusate sodium (COLACE) 100 mg Oral Capsule Take 100 mg by mouth daily. 0 Active oxyCODONE-aceta minophen (PERCOCET) 5-325 mg Oral Tablet Take 1-2 tabs by mouth every 4-6 hours as needed for pain (MAX 8 PER DAY). 0 Active methocarbamoL (ROBAXIN) 500 mg Oral Tablet Take 500-1,000 mg by mouth 4 times daily as needed. 0 Active amLODIPine-ator vastatatin (CADUET) 10-80 mg Oral Tablet Take 1 Tablet by mouth daily. 1 Active Cholecalciferol , Vitamin D3, 50 mcg (2,000 unit) Oral Capsule Take 50 mcg by mouth daily. 4 Active citalopram (CELEXA) 20 mg Oral Tablet Take 20 mg by mouth daily. Active colchicine 0.6 mg Oral Tablet Take 0.3 mg by mouth daily. 5 Active ergocalciferol (DRISDOL) 1,250 mcg (50,000 unit) Oral Capsule Take 50,000 Units by mouth once a week. 4 Active metoprolol succinate (TOPROL-XL) 25 mg Oral Tablet Sustained Release 24 hr Take 25 mg by mouth daily. 5 Active methylPREDNISol one (MEDROL DOSPACK) 4 mg Oral Tablets, Dose PackIndications :Contusion of left knee, initial encounter Follow package directions 21 Tablet 5 Active meloxicam (MOBIC) 15 mg Oral TabletIndicatio ns:Contusion of left knee, initial encounter Take 1 Tablet by mouth daily. 30 Tablet 5 Active Active Problems Problem Noted Date Diagnosed Date Abnormal electrocardiogram (ECG) (EKG) 5 Dyspnea 12/14/2024 Vitamin D deficiency 12/04/2023 Mild cognitive impairment 11/26/2023 Obstructive sleep apnea 01/09/2023 Overview (04/01/2025): Added automatically from request for surgery [id number] Left ankle swelling 05/03/2022 Primary osteoarthritis of right knee 03/08/2021 Overview (04/01/2025): Added automatically from request for surgery [id number] Acute hypoxemic respiratory failure due to COVID -19 01/30/2021 Essential hypertension 01/30/2021 Mixed hyperlipidemia 01/30/2021 COVID-19 01/29/2021 Chronic low back pain 10/12/2010 Neck pain 10/12/2010 Encounters Date Type Department Care Team Description 05/23/2025 Refill [facility] [place] [address] Cirilo Koch APRN Medication Refill from Last 3 Months Medical History Medical History Date Comments HTN (hypertension) Hyperlipemia Social History Tobacco Use Types Packs/Day Years Used Date Smoking Tobacco: Former Cigarettes Q uit: 08/18/2014 Smokeless Tobacco: Former Tobacco Cessation:Counseling Given: No Sex and Gender Information Value Date Recorded Sex Assigned at Not on file Legal Sex Male 5:53 AM EDT Gender Identity Not on file Sexual Orientation Not on file Last Filed Vital Signs Vital Sign Reading Time Taken Comments Blood Pressure 156/80 04/01/2025 5:19 PM EDT Pulse 66 04/01/2025 5:19 PM EDT Temperature 36.4 C (97.6 F) 04/01/2025 5:19 PM EDT Respiratory Rate 16 04/01/2025 5:19 PM EDT Oxygen Saturation 97% 04/01/2025 5:19 PM EDT Inhaled Oxygen Concentration - - Weight 99.8 kg (220 lb) 04/01/2025 5:19 PM EDT Height 182.9 cm (6') 04/01/2025 5:19 PM EDT Body Mass Index 29.84 04/01/2025 5:19 PM EDT Plan of Treatment Health Maintenance Due Date Last Done Comments Wellness Exam Medicare 1958 Hepatitis C Screening 1971 Cologuard 1998 Colon Cancer Screening 1998 Colonoscopy 1998 FIT 1998 Sigmoidoscopy 1998 Virtual Colonography 1998 Zoster (2 of 3) 07/12/2013 05/17/2013 AAA Screening 2018 COVID-19 Vaccine ( season) 2025 Influenza Vaccine (#1) 2025 , 06/06/2020, 07/22/2019, Additional history exists DTaP/TDaP/Td (3 - Td or Tdap) 08/01/2032 08/01/2022, 10/29/2010 Pneumococcal Vaccine 50+ Completed 09/15/2019, 09/2018 Hepatitis B Vaccine Aged Out No longe r eligible based on patient's age to complete this topic Meningococcal B Vaccine Aged Out No l onger eligible based on patient's age to complete this topic Insurance [place] [address] [employer] [place] [address] [employer]ARE [facility] [facility] MEDICARE [place] PART A AND B [employer] [facility] [facility] Advance Directives For more information, please contact: [phone] * Full Code (Latest Code Status on File) Date Activated Date Inactivated Comments 01/30/2021 12:16 AM 02/01/2021 5:19 PM Care Teams Stevedoring Superintendent Relationship Specialty Start Date End Date Rosales Ulrich MD [address] [place] [phone] PCP - General Internal Medicine 09/13/23
[2025-07-09 17:46] VITALS: BP 145/85; PULSE 85; RESP 14; TEMP 36.9; O2SAT 99
== END 2025-07-09 17:46 | disposition home or self-care (01) ==
PROVIDERS: Emergency Provider Student in an Organized Health Care Education/Training Program
DX: M25.562 Pain in left knee (principal); W01.10XA Fall on same level from slipping, tripping and stumbling with subsequent striking against unspecified object, initial encounter
CPT/HCPCS: 73552; 73562; 73590; 99284